=== PATIENT | male | born 1945 | race Caucasian/White ===

== ENCOUNTER → 2017-02-05 | Outpatient (CLI) | payer OTHER ==
[2017-02-05 16:35] LABS: HEMATOCRIT 43.6 % (42-52); MEAN CELL VOLUME 92.6 fL (80-100); MEAN CORPUSCULAR HEMOGLOBIN 30.6 pg (25-34); MEAN PLATELET VOLUME 11.3 fL (7.4-10.4); PLATELET COUNT 218 K/uL (130-400); RED BLOOD COUNT 4.71 M/uL (4.7-6.1); WHITE BLOOD COUNT 8.64 K/uL (4.8-10.8)
[2017-02-05 16:44] LABS: ALT/SGPT 31 U/L (12-78); BLOOD UREA NITROGEN 21 mg/dl (7-18); BUN/CREATININE RATIO 16.2 (10-20); CALCIUM 9.8 mg/dl (8.5-10.1); CARBON DIOXIDE 28 mmol/L (21-32); CHLORIDE 106 mmol/L (98-107); CHOLESTEROL 114 mg/dl (0-200); GLUCOSE 104 mg/dl (70-99); POTASSIUM 4.2 mmol/L (3.5-5.1); SODIUM 140 mmol/L (136-145)
[2017-02-05 17:00] LABS: ALB/GLOB RATIO 0.9 (0.9-2); ALKALINE PHOSPHATASE 68 U/L (45-117); AST/SGOT 15 U/L (15-37); CHOLESTEROL/HDL RATIO 3.1; HDL CHOLESTEROL 37 mg/dl; LDL CHOLESTEROL CALCULATED 18 mg/dl; TRIGLYCERIDES 296 mg/dl (0-150); VERY LOW DENSITY LIPOPROT CALC 59 mg/dl
[2017-02-06 06:48] LABS: ESTIMATED AVERAGE GLUCOSE 131 mg/dl; HA1C FLAG Normal (Normal)
== END | disposition home or self-care (01) ==
LOC: C.LABBC 12:02
PROVIDERS: ATTEND Internal Medicine
DX: Z00.00 Encounter for general adult medical examination without abnormal findings (principal); E11.9 Type 2 diabetes mellitus without complications; I10 Essential (primary) hypertension; E78.5 Hyperlipidemia, unspecified

== ENCOUNTER 2017-06-28 05:11 | Inpatient (IN) | payer OTHER ==
[2017-06-18 09:11] VITALS: Ht 172.7 cm; Wt 110.1 kg
--- NOTE | 2017-06-18 09:54 | PAT Medication Instructions ---
Service Date Jun 18, 2017. Current Home Medication List Amlodipine (Norvasc), 5 MG PO QAM Aspirin (Aspirin Ec), 81 MG PO HS Atorvastatin (Lipitor), 20 MG PO QPM Carvedilol (Coreg), 0.5 TAB PO BID Clopidogrel (Plavix), 75 MG PO QAM Diphenoxylate/Atropine (Lomotil), 2 TAB PO UD Escitalopram Oxalate (Lexapro), 20 MG PO QPM Isosorbide Mononitrate (Isosorbide Mononitrate), 60 MG PO QAM Losartan Potassium (Cozaar), 100 MG PO QAM Pioglitazone (Actos), 1 TAB PO HS Medication Instructions For Your Scheduled Surgery - Hold the following medications per surgeon and hospitalist physician: Clopidogrel (Plavix), 75 MG PO QAM - Hold the following medications the morning of surgery: Losartan Potassium (Cozaar), 100 MG PO QAM Diphenoxylate/Atropine (Lomotil), 2 TAB PO UD - Take the following medications the morning of surgery with a sip of water: Amlodipine (Norvasc), 5 MG PO QAM Carvedilol (Coreg), 0.5 TAB PO BID Isosorbide Mononitrate (Isosorbide Mononitrate), 60 MG PO QAM - Take the following medications as scheduled the night before surgery: Pioglitazone (Actos), 1 TAB PO HS Escitalopram Oxalate (Lexapro), 20 MG PO QPM Aspirin (Aspirin Ec), 81 MG PO HS (okay to continue per surgeon) Carvedilol (Coreg), 0.5 TAB PO BID Atorvastatin (Lipitor), 20 MG PO QPM Diphenoxylate/Atropine (Lomotil), 2 TAB PO UD If you have any questions please call us at [phone] or [phone] or [phone]
[2017-06-18 10:33] LABS: BASO % 0.4 %; BASO ABS # 0.03 K/uL (0-0.2); EOS % 2.8 %; EOS ABS # 0.22 K/uL (0-0.5); HEMOGLOBIN 12.3 g/dL (14.0-18.0); IG# 0.03 K/uL (0.00-0.02); LYMPH % 25.1 %; LYMPH ABS # 1.99 K/uL (1.2-3.4); MEAN CELL VOLUME 92.2 fL (80-100); MEAN CORPUSCULAR HEMOGLOBIN 29.9 pg (25-34); MEAN CORPUSCULAR HGB CONC 32.4 g/dl (32-36); MONO % 6.2 %; MONO ABS # 0.49 K/uL (0.11-0.59); NEUT % 65.1 %; NEUT ABS # 5.16 K/uL (1.4-6.5); PLATELET COUNT 207 K/uL (130-400); RED CELL DISTRIBUTION WIDTH CV 15.1 % (11.5-14.5); RED CELL DISTRIBUTION WIDTH SD 51.1 fL (36.4-46.3); WHITE BLOOD COUNT 7.92 K/uL (4.8-10.8)
--- NOTE | 2017-06-18 10:37 | DIAGNOSTIC IMAGING REPORT ---
CHEST 2 VIEWS ROUTINE HISTORY: Preop. COMPARISON: None. FINDINGS: The lungs are clear. No pleural effusions. No pneumothorax. The heart is borderline enlarged. IMPRESSION: Borderline enlargement of the cardiac silhouette. Otherwise, no acute process within the chest. Electronically signed by: Ramos Ochoa M.D. 06/18/2017 10:36 AM Dictated Date/Time: 06/18/2017 10:35 AM
[2017-06-18 10:42] LABS: INR 1.1 (0.9-1.1); PTT PATIENT 25.2 SECONDS (21.0-31.0)
[2017-06-18 11:53] LABS: CREATININE 1.5 mg/dl (0.60-1.40); POTASSIUM 3.5 mmol/L (3.5-5.1)
--- NOTE | 2017-06-25 12:02 | HISTORY & PHYSICAL EXAMINATION ---
DATE OF ADMISSION: 06/28/2017 He is being preoped for lumbar spine laminectomy L2-L3, L3-L4, L4-L5 lumbar. CHIEF COMPLAINT: Back and lower extremity difficulty, paresthesias, numbness and tingling and neurogenic claudication, inability to ambulate and pain. He had a very solid workup for spinal stenosis. He had a very impressive MRI with stenosis L2-L5. PAST MEDICAL HISTORY: Positive for sleep apnea, myocardial infarction, hypertension, high cholesterol, angina, diabetes, obesity. He does have a problem with kidney stones and enlarged prostate. PAST SURGICAL HISTORY: Includes appendectomy, parathyroid surgery. MEDICATIONS: Losartan, Plavix, carvedilol, atorvastatin, aspirin. ALLERGIES: CHRISTINE INHIBITORS AND SULFA MEDICATION. SOCIAL HISTORY: He is a nonsmoker, no alcohol, no illegal drug usage. REVIEW OF SYSTEMS: He denies any blurred vision, double vision, tinnitus, vertigo, loss of balance, change in mentation. Denies any ear, nose and throat complaints. He denies chest pain, palpitations, angina. Denies shortness of breath, wheezing. No nausea, vomiting. No urgency, frequency. No loss of bowel or bladder function. PHYSICAL EXAMINATION: GENERAL: He is 5'8, 248 pounds. He is alert, oriented. Mentation normal. HEAD, EYES, EARS, NOSE, AND THROAT: Normal. VITAL SIGNS: Blood pressure 130/80, pulse of 80, afebrile. CARDIAC: Normal S1, S2, no S3. LUNGS: Clear to auscultation. No rales, rhonchi or wheezing. ABDOMEN: Soft, nontender. MUSCULOSKELETAL: He has decreased range of motion, flexion, extension of the spine. Pain with percussion, slow with ambulation, weakness with dorsiflexion, loss of sensation, slight weakness of plantarflexion. Reflexes are blunted. IMAGES: Demonstrate severe stenosis of the spine. IMPRESSION: Spinal stenosis, lumbar. DISPOSITION: Includes a laminectomy 2-3, 3-4, 4-5 lumbar spine.
[2017-06-28] VITALS (9 sets, daily range): BP systolic 133–166; BP diastolic 71–90; PULSE 56–73; TEMP 36.4–37.8; O2SAT 91–97
[~2017-06-28] VITALS: Ht 172.7 cm; Wt 110.1 kg
[~2017-06-28 05:11] MED LIST: ACT30 PO; AMLO-110 PO; ASPI81TA28 PO; ATOR-22 PO; CARV25TA2 PO; CLOP1TAB15 PO; DIPH-416 PO; ESCI1TAB10 PO; ISM20 PO; LOSA1TAB38 PO
[2017-06-28] MEDS ORDERED: NSS 1000ML IV SCH (06:00)
[2017-06-28] MEDS ORDERED: CEFAZOLIN 2000MG IV PUSH 10 ML IV SCH (06:00)
[2017-06-28] MEDS ORDERED: LACTATED RINGER'S 1000ML 1,000 ML IV SCH (06:00)
[2017-06-28] MEDS ORDERED: LIDOCAINE HCL 2% 2 ML VIAL (20MG/ML) ONE (06:34)
[2017-06-28] MEDS ORDERED: DEXAMETHASONE SOD INJ 4 MG/ML VIAL ONE (06:34)
[2017-06-28] MEDS ORDERED: ONDANSETRON INJ 2 MG/ML 2 ML VIAL ONE (06:34)
[2017-06-28] MEDS ORDERED: PROPOFOL IV EMULSION 10 MG/ML 20 ML VIAL IV ONE (06:34)
[2017-06-28] MEDS ORDERED: ROCURONIUM BROMIDE 10 MG/ML 5 ML VIAL IV ONE ×2 (06:35→07:41)
[2017-06-28] MEDS ORDERED: FENTANYL CITRATE INJ 50 MCG/1 ML 2 ML VIAL ONE (06:35)
[2017-06-28] MEDS ORDERED: EpINEphrine INJ 1MG/ML AMP 1 MG/ML AMP ONE (07:03)
[2017-06-28] MEDS ORDERED: THROMBIN FOR SOLN 20000 UNIT KIT ONE (07:03)
[2017-06-28] MEDS ORDERED: GELATIN SPONGE SZ 100 ONE (07:03)
[2017-06-28] MEDS ORDERED: BUPIVACAINE 0.5 % 5 MG/1 ML MPF 30ML VIAL ONE (07:04)
[2017-06-28] MEDS ORDERED: BACITRACIN 50000 UNIT VIAL ONE (07:04)
[2017-06-28] MEDS ORDERED: VANCOMYCIN HCL 1000MG/20ML VIAL ONE ×2 (07:04→08:08)
--- NOTE | 2017-06-28 07:07 | History & Physical Bridge Note ---
H&P Re-Evaluation Bridge Note: I have examined the patient, reviewed the History & Physical and in the interval since the performance of the History & Physical I have noted the following changes of clinical significance: No changes noted
[2017-06-28] MEDS ORDERED: EpHEDrine SULFATE INJ 50 MG/ML AMP IV PRN (07:15)
[2017-06-28] MEDS ORDERED: ATROPINE SULFATE 0.1 MG/ML 5ML SYR IV PRN (07:15)
[2017-06-28] MEDS ORDERED: ONDANSETRON INJ 2 MG/ML 2 ML VIAL IV PRN ×2 (07:15→09:30)
[2017-06-28] MEDS ORDERED: MoRPHine SULFATE 10 MG/ML CARP/VIAL IV PRN (07:15)
[2017-06-28] MEDS ORDERED: HYDROmorphone INJ 2 MG/ML SYR/VIAL ONE (07:38)
[2017-06-28] MEDS ORDERED: NEOSTIGMINE METHYLSULFATE 5 MG/5 ML SYR ONE (08:54)
[2017-06-28] MEDS ORDERED: EpHEDrine SULFATE 50MG/5ML SYR ONE (08:54)
[2017-06-28] MEDS ORDERED: GLYCOPYRROLATE INJ 0.2 MG/ML VIAL ONE (08:54)
--- NOTE | 2017-06-28 09:13 | DIAGNOSTIC IMAGING REPORT ---
INTRAOPERATIVE LUMBAR SPINE SINGLE VIEW CLINICAL HISTORY: L2-L5 LAMINECTOMY COMPARISON STUDY: Outside MRI dated 04/20/2017 FINDINGS: 2 seconds of fluoroscopic time was utilized. A single fluoroscopic spot image is provided for interpretation. This reveals posterior skin retractors. There is a metallic probe at the level the posterior elements at the L1-2 level, as well as a metallic probe within the posterior elements at the S1-2 level. IMPRESSION: Intraoperative radiograph for localization purposes. Electronically signed by: Juan J Patel M.D. 06/28/2017 9:11 AM Dictated Date/Time: 06/28/2017 9:10 AM
--- NOTE | 2017-06-28 09:25 | [facility] Post Operative Brief Note ---
Immediate Operative Summary Operative Date Jun 28, 2017. Pre-Operative Diagnosis Spinal stenosis, lumbar L2-L5 Post-Operative Diagnosis Spinal stenosis, lumbar L2-L5 Procedure(s) Performed L2-L3, L3-L4, L4-L5 Laminectomies Sur[address] Uday Garcia Breaker Oiler Surgeon(s) Jose Breen PA-C Estimated Blood Loss 100 mL Findings stenosis Specimens No pathology specimens per surgeon Complication(s) None Disposition Recovery Room / PACU
[2017-06-28] MEDS ORDERED: METOCLOPRAMIDE HCL INJ 5 MG/ML 2 ML VIAL IV PRN (09:30)
[2017-06-28] MEDS ORDERED: LORAZEPAM 1 MG TAB PO PRN (09:30)
[2017-06-28] MEDS ORDERED: PROMETHAZINE HCL INJ 12.5 MG in SODIUM CHLORIDE 0.9% 50ML 50 ML IV PRN (09:30)
[2017-06-28] MEDS ORDERED: MAGNESIUM HYDROXIDE SUSP 30 ML UDC PO PRN (09:30)
[2017-06-28] MEDS ORDERED: HYDROmorphone INJ 1 MG/ML SYR IV PRN ×2 (09:30)
[2017-06-28] MEDS ORDERED: LORAZEPAM INJ 1 MG in SYRINGE 0 ML IV PRN (09:30)
[2017-06-28] MEDS ORDERED: OXYCODONE HCL IR 5 MG TAB (IMMEDIATE RELEASE) PO PRN (09:30)
[2017-06-28] MEDS ORDERED: DIPHENOXYLATE/ATROPINE 2.5/0.025MG TAB PO PRN (09:30)
[2017-06-28] MEDS ORDERED: ACETAMINOPHEN 325 MG TAB PO PRN (09:30)
--- NOTE | 2017-06-28 09:45 | OPERATIVE REPORT ---
DATE OF OPERATION: 06/28/2017 PREOPERATIVE DIAGNOSIS: Stenosis L2-L5 lumbar spine. POSTOPERATIVE DIAGNOSIS: Same. PROCEDURE: 1. Decompression laminectomy for level L2-5, lumbar spine foraminotomy, partial facetectomy. 2. Posterior lateral bilateral fusion with allograft and autograft from L2-5. SURGEON: Uday Garcia DO. ROLE PLAYER: Jose Breen PA-C. COMPLICATIONS: Zero. BLOOD LOSS: 100. ANESTHETIC: General. DESCRIPTION OF PROCEDURE: The patient was taken to the operating room and general intubated anesthetic provided to the patient, placed prone, scrubbed, prepped and draped sterile. We made a skin incision roughly from L1-S1 dissecting the soft tissue out over the facet joints and transverse processes. I put in a deep self-retaining retractor. We meticulously dissected free the spinal canal, lamina ligamentum flavum, extra osteophyte formation. I was pleased with the decompression. Each and every nerve root probed free of obstruction, visualized free of obstruction. We irrigated thoroughly, bone grafted out over the transverse processes of L2-5, closed over Hemovac drain, Gelfoam and vancomycin powder with #1 Vicryl suture, 2-0 in the subcuticular layer, 3-0 nylon on the skin. Sterile dressings applied. The patient returned to recovery room satisfactory and stable. Again, no complications. Sponge and needle count correct. I attest to the content of the Intraoperative Record and any orders documented therein. Any exception s are noted below.
[2017-06-28] MEDS: FENTANYL CITRATE INJ 50 MCG/1 ML 2 ML VIAL IV PRN ×4 (09:47→10:09)
[2017-06-28] MEDS ORDERED: IV FLUIDS COMPLETED PRN (10:00)
--- NOTE | 2017-06-28 10:45 | Anesthesiology Progress Note ---
Anesthesia Post Op Note Date & Time Jun 28, 2017 at 10:45 Vital Signs Pain Intensity: 5 Vital Signs Past 12 Hours Date Time Temp Pulse Resp B/P (MAP) Pulse Ox O2 Delivery O2 Flow Rate FiO2 06/28/17 10:27 58 12 06/28/17 10:27 59 12 95 06/28/17 10:26 158/81 06/28/17 10:24 156/83 06/28/17 10:22 58 12 06/28/17 10:22 58 12 97 06/28/17 10:21 159/84 06/28/17 10:17 58 12 98 06/28/17 10:17 58 12 06/28/17 10:16 150/84 06/28/17 10:13 36.4 58 18 150/84 (115) 97 Nasal Cannula 2 06/28/17 10:12 58 5 06/28/17 10:12 58 5 99 06/28/17 10:11 149/80 06/28/17 10:07 59 4 99 06/28/17 10:07 59 4 06/28/17 10:06 146/81 06/28/17 10:02 60 7 100 06/28/17 10:02 59 7 06/28/17 10:01 59 18 161/81 99 06/28/17 10:01 59 18 06/28/17 09:56 61 13 06/28/17 09:56 61 13 163/77 99 06/28/17 09:51 59 8 06/28/17 09:51 61 8 94 06/28/17 09:46 59 15 153/73 95 06/28/17 09:46 59 15 06/28/17 09:41 63 10 98 06/28/17 09:41 63 10 06/28/17 09:39 152/72 06/28/17 09:36 36.1 64 16 168/78 98 Oxymask 2 06/28/17 09:36 168/78 06/28/17 05:58 36.8 60 20 166/78 (107) 95 Room Air Notes Mental Status: alert / awake / arousable, participated in evaluation Pt Amnestic to Procedure: Yes Nausea / Vomiting: adequately controlled Pain: adequately controlled Airway Patency, RR, SpO2: stable & adequate BP & HR: stable & adequate Hydration State: stable & adequate Anesthetic Complications: no major complications apparent
[2017-06-28] MEDS: SODIUM CHLORIDE 0.9% 1000ML 1,000 ML IV SCH ×2 (11:37→23:51)
[2017-06-28] MEDS: ACETAMINOPHEN IV 1,000 MG in EMPTY BAG 0 ML IV SCH ×2 (12:46→20:46)
[2017-06-28] MEDS: OXYCODONE HCL IR 5 MG TAB (IMMEDIATE RELEASE) PO PRN (12:51)
[2017-06-28] MEDS: DEXAMETHASONE INJ 10 MG in SYRINGE 0 ML IV SCH ×2 (14:07→21:59)
--- NOTE | 2017-06-28 16:50 | Progress Note ---
Subjective Date of Service: Jun 28, 2017. Subjective Pt evaluation today including: conversation w/ patient 71 yo male with no complaints today. Patient had L2-L3, L3-L4, L4-L5 Laminectomies for spinal stenosis. Patient reports that his pain is controlled Review of Systems Constitutional: No fever, No chills Eyes: No worsening of vision ENT: No hearing loss Respiratory: No cough, No sputum Cardiac: No chest pain, No orthopnea Abdomen: No pain, No nausea Neurologic: No memory loss, No paralysis Psychiatric: No depression symptoms, No anhedonism Heme: No abnormal bleeding/bruising Endo: No fatigue Skin: No rash, No itch Current Inpatient Medications Medications (Trade) Dose Ordered Sig/Darlene Route Start Time Stop Time Status Last Admin Dose Admin Acetaminophen (Tylenol Tab) 650 mg Q6H PRN PO 06/28/17 09:30 07/28/17 09:29 Future Hold Hydromorphone HCl (Dilaudid Inj) 1 mg Q3H PRN IV 06/28/17 09:30 07/12/17 09:29 Hydromorphone HCl (Dilaudid Inj) 1.5 mg Q3H PRN IV 06/28/17 09:30 07/12/17 09:29 Promethazine HCl 12.5 mg/Sodium Chloride 50.5 ml @ 202 mls/hr Q6H PRN IV 06/28/17 09:30 07/28/17 09:29 Ondansetron HCl (Zofran Inj) 4 mg Q6H PRN IV 06/28/17 09:30 07/28/17 09:29 Metoclopramide HCl (Reglan Inj) 10 mg Q6H PRN IV 06/28/17 09:30 07/28/17 09:29 Lorazepam (Ativan Tab) 1 mg Q6H PRN PO 06/28/17 09:30 07/28/17 09:29 06/28/17 20:46 1 MG Lorazepam 1 mg/ Syringe 0.5 ml @ 1 mls/min Q6H PRN IV 06/28/17 09:30 07/28/17 09:29 Polyethylene (Miralax Powder Packet) 17 gm DAILY PO 06/29/17 09:00 07/29/17 08:59 Bisacodyl (Dulcolax Tab) 5 mg DAILY PRN PO 06/29/17 06:00 07/29/17 05:59 Bisacodyl (Dulcolax Supp) 10 mg DAILY PRN MD 06/29/17 06:00 07/29/17 05:59 Magnesium Hydroxide (Milk Of Magnesia Susp) 30 ml DAILY PRN PO 06/28/17 09:30 07/28/17 09:29 Diphenhydramine HCl (Benadryl Cap) 25 mg Q6H PRN PO 06/28/17 09:30 07/28/17 09:29 Cefazolin Sodium 2000 mg/Syringe 10 ml @ 2.5 mls/min Q8H IV 06/28/17 16:00 06/29/17 08:03 06/28/17 23:51 2.5 MLS/MIN Dexamethasone Sodium Phosphate 10 mg/Syringe 2.5 ml @ 1 mls/min Q8H IV 06/28/17 14:00 06/29/17 22:03 06/28/17 21:59 1 MLS/MIN Oxycodone HCl (Roxicodone Immediate Rel Tab) 5 mg Q4H PRN PO 06/28/17 09:30 07/12/17 09:29 Oxycodone HCl (Roxicodone Immediate Rel Tab) 10 mg Q4H PRN PO 06/28/17 09:30 07/12/17 09:29 06/28/17 12:51 10 MG Sodium Chloride 1,000 ml @ 80 mls/hr [id number] IV 06/28/17 11:30 07/28/17 11:29 06/28/17 23:51 80 MLS/HR Amlodipine Besylate (Norvasc Tab) 5 mg QAM PO 06/29/17 09:00 07/29/17 08:59 Aspirin (Ecotrin Tab) 81 mg HS PO 06/28/17 21:00 07/28/17 20:59 06/28/17 20:46 81 MG Atorvastatin Calcium (Lipitor Tab) 20 mg QPM PO 06/28/17 21:00 07/28/17 20:59 06/28/17 20:45 20 MG Carvedilol (Coreg Tab) 12.5 mg BID PO 06/28/17 21:00 07/28/17 20:59 06/28/17 20:46 12.5 MG Clopidogrel Bisulfate (plAVix TAB) 75 mg QAM PO 06/29/17 09:00 07/29/17 08:59 Diphenoxylate HCl/ Atropine (Lomotil Tab) 2 tab UD PRN PO 06/28/17 09:30 07/28/17 09:29 Escitalopram Oxalate (Lexapro Tab) 20 mg QPM PO 06/28/17 21:00 07/28/17 20:59 06/28/17 20:45 20 MG Isosorbide Mononitrate (Ismo Tab) 60 mg QAM PO 06/29/17 09:00 07/29/17 08:59 Losartan Potassium (coZAAR TAB) 100 mg QAM PO 06/29/17 09:00 07/29/17 08:59 Pioglitazone HCl (ACTos TAB) 30 mg HS PO 06/28/17 21:00 07/28/17 20:59 06/28/17 20:45 30 MG Acetaminophen 1000 mg/Empty Bag 100 ml @ 400 mls/hr Q8H IV 06/28/17 12:00 07/28/17 11:59 06/28/17 20:46 400 MLS/HR Miscellaneous (Iv Fluids Completed) 1 ea PRN PRN N/A 06/28/17 10:00 06/28/18 09:59 Menthol (Nice Chao) 1 chao PRN PRN PO 06/28/17 17:45 07/28/17 17:44 06/28/17 18:08 1 CHAO Miscellaneous Information (Consult Glycemic Management Pharmacy) 1 ea DAILY PRN N/A 06/28/17 22:48 07/28/17 22:47 Glucose (Glucose 40% Gel) 15-30 GRAMS 15 GRAMS... UD PRN PO 06/28/17 23:00 07/28/17 22:59 Glucose (Glucose Chew Tab) 4-8 Tablets 4 Tabl... UD PRN PO 06/28/17 23:00 07/28/17 22:59 Dextrose (Dextrose 50% 50ML Syringe) 25-50ML OF 50% DW IV FOR... UD PRN IV 06/28/17 23:00 07/28/17 22:59 Glucagon (Glucagon Inj) 1 mg UD PRN SQ 06/28/17 23:00 07/28/17 22:59 Insulin Aspart (novoLOG ASPART) SLIDING SCALE ACHS FL 06/29/17 08:00 07/29/17 07:59 Insulin Aspart (novoLOG ASPART) SLIDING SCALE 0200 SC 06/29/17 02:00 06/29/17 02:01 All Other Systems: Reviewed and Negative Objective Vital Signs Date Time Temp Pulse Resp B/P (MAP) Pulse Ox O2 Delivery O2 Flow Rate FiO2 06/28/17 15:11 36.9 59 16 135/75 (95) 96 Nasal Cannula 2.0 06/28/17 13:41 37.2 64 18 138/74 (95) 95 Nasal Cannula 2.0 06/28/17 12:38 59 133/71 (91) 97 Nasal Cannula 2.0 06/28/17 11:49 36.4 56 18 164/85 (111) 94 Nasal Cannula 2.0 06/28/17 11:25 Nasal Cannula 2.0 06/28/17 11:07 58 18 162/83 (109) 96 Nasal Cannula 2.0 06/28/17 10:40 Nasal Cannula 2.0 06/28/17 10:40 36.6 58 16 164/84 (110) 95 Nasal Cannula 2.0 06/28/17 10:40 95 Nasal Cannula 2.0 06/28/17 10:27 58 12 06/28/17 10:27 59 12 95 06/28/17 10:26 158/81 06/28/17 10:24 156/83 06/28/17 10:22 58 12 06/28/17 10:22 58 12 97 06/28/17 10:21 159/84 06/28/17 10:17 58 12 98 06/28/17 10:17 58 12 06/28/17 10:16 150/84 06/28/17 10:13 36.4 58 18 150/84 (115) 97 Nasal Cannula 2 06/28/17 10:12 58 5 06/28/17 10:12 58 5 99 06/28/17 10:11 149/80 06/28/17 10:07 59 4 99 06/28/17 10:07 59 4 06/28/17 10:06 146/81 06/28/17 10:02 60 7 100 06/28/17 10:02 59 7 06/28/17 10:01 59 18 161/81 99 06/28/17 10:01 59 18 1/8/18 09:56 61 13 06/28/17 09:56 61 13 163/77 99 06/28/17 09:51 59 8 06/28/17 09:51 61 8 94 06/28/17 09:46 59 15 153/73 95 06/28/17 09:46 59 15 06/28/17 09:41 63 10 98 06/28/17 09:41 63 10 06/28/17 09:39 152/72 06/28/17 09:36 36.1 64 16 168/78 98 Oxymask 2 06/28/17 09:36 168/78 06/28/17 05:58 36.8 60 20 166/78 (107) 95 Room Air Physical Exam General Appearance: WD/WN, no apparent distress Eyes: normal inspection ENT: normal ENT inspection Neck: supple, no adenopathy Respiratory/Chest: chest non-tender, lungs clear, normal breath sounds Cardiovascular: regular rate, rhythm, no edema Abdomen: normal bowel sounds Extremities: normal range of motion Skin: normal color Lymphatic: no adenopathy Laboratory Results Last 24 Hours Test 06/28/17 05:44 06/28/17 10:00 06/28/17 11:24 06/28/17 12:01 Bedside Glucose 90 mg/dl 117 mg/dl 121 mg/dl Hepatitis C Antibody Screen NEG Assessment and Plan 71 yo male admitted for multple l2-L3, L3-L4, L4-L5 Laminectomies for spinal stenosis. Patient was consulted for medical management. Diabetes Mellitus 2 Blood sugars today have been controlled. will monitor. will continue pioglitazone. Blood sugar has remained below 180. If it elevates will initiate insulin. Hypertension BP at goal. will continue Losartan, Amlodipine, Plavix, Imdur, Coreg, Lipitor, Norvasc CAD s/p MA - Continue Losartan 100 mg daily, ASA 81 mg daily, Atorvastatin 20 daily, Coreg 12.5 mg BID, Imdur 60 mg daily, Plavix 75 mg daily, Norvasc 5 mg daily
[2017-06-28] MEDS: CEFAZOLIN IV 2,000 MG in SYRINGE 0 ML IV SCH ×2 (16:59→23:51)
[2017-06-28] MEDS ORDERED: NURSING DECISION MEDICATION ORDER SCH (17:45)
[2017-06-28] MEDS ORDERED: COUGH DROP (SUGAR FREE) LOZ 24 LOZ/1 BOX PO PRN (17:45)
[2017-06-28] MEDS: PIOGLITAZONE TAB 15 MG TAB PO SCH (20:45)
[2017-06-28] MEDS: ESCITALOPRAM OXALATE 20 MG TAB PO SCH (20:45)
[2017-06-28] MEDS: ATORVASTATIN 20 MG TAB PO SCH (20:45)
[2017-06-28] MEDS: ASPIRIN 81 MG ECTAB PO SCH (20:46)
[2017-06-28] MEDS: CARVEDILOL 12.5 MG TAB PO SCH (20:46)
[2017-06-28] MEDS ORDERED: PHARMACY GLYCEMIC MGMT CONSULT PRN (22:48)
[2017-06-28] MEDS ORDERED: LANTUS PER UNIT CHARGE SQ STA (22:54)
[2017-06-28] MEDS ORDERED: INSULIN ASPART 100 UNITS/ML 3 ML PEN SC STA (22:54)
[2017-06-28] MEDS ORDERED: GLUCOSE 40% GEL 15 GM TUBE PO PRN (23:00)
[2017-06-28] MEDS ORDERED: GLUCOSE 10 TABS/TUBE PO PRN (23:00)
[2017-06-28] MEDS ORDERED: DEXTROSE 50% 50 ML SYR IV PRN (23:00)
[2017-06-28] MEDS ORDERED: GLUCAGON FOR INJ 1 MG VIAL SQ PRN (23:00)
[2017-06-29] VITALS (8 sets, daily range): BP systolic 120–165; BP diastolic 66–88; PULSE 58–85; TEMP 36.7–37.8; O2SAT 90–95
[2017-06-29] MEDS ORDERED: INSULIN ASPART 100 UNITS/ML 3 ML PEN SC SCH (02:00)
[2017-06-29] MEDS: ACETAMINOPHEN IV 1,000 MG in EMPTY BAG 0 ML IV SCH ×3 (03:30→21:58)
[2017-06-29] MEDS: DEXAMETHASONE INJ 10 MG in SYRINGE 0 ML IV SCH (05:36)
[2017-06-29] MEDS ORDERED: NURSING VERBAL MED ORDER ONE (05:45)
[2017-06-29] MEDS ORDERED: BISACODYL 5 MG TABEC PO PRN (06:00)
[2017-06-29] MEDS ORDERED: BISACODYL 10 MG SUPP PR PRN (06:00)
[2017-06-29] MEDS: OXYCODONE HCL IR 5 MG TAB (IMMEDIATE RELEASE) PO PRN (07:41)
[2017-06-29] MEDS: CEFAZOLIN IV 2,000 MG in SYRINGE 0 ML IV SCH (07:41)
--- NOTE | 2017-06-29 08:05 | ORTHOPEDICS PROGRESS NOTE ---
DATE: 06/29/2017 SUBJECTIVE: Improved, stable. Still weakness to the extremities. Alert, oriented, no chest pain, shortness of breath. OBJECTIVE: At bedside, 5/5 strength. Vital signs stable, pressure controlled. ASSESSMENT: Status post lumbar spine decompression surgery. Major surgery, multiple levels of his lumbar spine performed yesterday the 28 of June. DISPOSITION: We will get him up and ambulatory today with physical therapy. He has a brace for support. I put in an order for discharge planning. He would be a good candidate for home health and rehab versus in house rehab with [facility].
--- NOTE | 2017-06-29 08:09 | Anesthesiology Progress Note ---
Anesthesia Post Op Note Date & Time Jun 29, 2017 at 08:09 Vital Signs Pain Intensity: 6.0 Vital Signs Past 12 Hours Date Time Temp Pulse Resp B/P (MAP) Pulse Ox O2 Delivery O2 Flow Rate FiO2 06/29/17 07:45 Room Air CPAP 06/29/17 07:32 36.7 63 16 147/81 (103) 94 Room Air 06/29/17 03:30 36.8 58 18 158/82 (107) 95 BiPAP 06/28/17 23:50 Room Air CPAP 06/28/17 23:26 37.3 68 18 154/90 (111) 94 Room Air Notes Mental Status: alert / awake / arousable, participated in evaluation Pt Amnestic to Procedure: Yes Nausea / Vomiting: adequately controlled Pain: adequately controlled Airway Patency, RR, SpO2: stable & adequate BP & HR: stable & adequate Hydration State: stable & adequate Anesthetic Complications: no major complications apparent
[2017-06-29] MEDS: CLOPIDOGREL BISULFATE 75 MG TAB PO SCH (08:45)
[2017-06-29] MEDS: POLYETHYLENE (MIRALAX) 17 GM PACK PO SCH (08:45)
[2017-06-29] MEDS: LOSARTAN POTASSIUM 50 MG TAB PO SCH (08:46)
[2017-06-29] MEDS: CARVEDILOL 12.5 MG TAB PO SCH ×2 (08:46→21:57)
[2017-06-29] MEDS: AMLODIPINE BESYLATE 5 MG TAB PO SCH (08:46)
[2017-06-29] MEDS: ISOSORBIDE MONONITRATE 20 MG TAB PO SCH (08:47)
[2017-06-29 09:39] LABS: BASO % 0.1 %; BASO ABS # 0.01 K/uL (0-0.2); HEMATOCRIT 36.6 % (42-52); HEMOGLOBIN 12.3 g/dL (14.0-18.0); IG# 0.07 K/uL (0.00-0.02); LYMPH % 9.7 %; LYMPH ABS # 1.47 K/uL (1.2-3.4); MEAN CELL VOLUME 89.5 fL (80-100); MEAN CORPUSCULAR HEMOGLOBIN 30.1 pg (25-34); MEAN CORPUSCULAR HGB CONC 33.6 g/dl (32-36); MEAN PLATELET VOLUME 11.1 fL (7.4-10.4); MONO % 3.7 %; MONO ABS # 0.56 K/uL (0.11-0.59); NEUT ABS # 12.97 K/uL (1.4-6.5); PLATELET COUNT 205 K/uL (130-400); RED CELL DISTRIBUTION WIDTH CV 14.5 % (11.5-14.5); RED CELL DISTRIBUTION WIDTH SD 47.8 fL (36.4-46.3); WHITE BLOOD COUNT 15.08 K/uL (4.8-10.8)
[2017-06-29] MEDS: INSULIN ASPART 100 UNITS/ML 3 ML PEN SC SCH ×4 (09:43→21:00)
[2017-06-29 10:04] LABS: CALCIUM 9.1 mg/dl (8.5-10.1); CREATININE 1.36 mg/dl (0.60-1.40); POTASSIUM 3.3 mmol/L (3.5-5.1)
[2017-06-29 10:06] LABS: HEMOGLOBIN A1C 6.3 % (4.5-5.6)
[2017-06-29] MEDS ORDERED: POTASSIUM CHLORIDE 20 MEQ TABCR PO ONE (10:15)
--- NOTE | 2017-06-29 10:49 | Medical Consult ---
Consultation Date of Consultation: Jun 29, 2017. Attending Physician: Uday Garcia DO Reason for Consultation: Medical management History of Present Illness Patient is a 71 y/o male, with PMHx of CAD s/p FL, HLD, HTN, T2DM, anxiety, depression, HECTOR, and BPH, s/p decompression laminectomy for level L2-5, lumbar spine foraminotomy, partial facetectomy, posterior lateral bilateral fusion with allograft and autograft from L2-[address] Garcia on 06/28. Pain is currently well controlled. No BM/flatus postop. Eating and drinking OK. Patient denies any fever, chills, sweats, lightheadedness, dizziness, vision changes, CP, palpitations, edema, SOB, wheezing, cough, abdominal pain, nausea, vomiting, diarrhea, urinary symptoms, melena, numbness/tingling, weakness, muscle/joint pain, anxiety/depression, active bleeding, or new skin discoloration/changes. Past Medical/Surgical History PAST MEDICAL HISTORY: HECTOR CAD s/p myocardial infarction angina hypertension high cholesterol T2DM anxiety depression obesity h/o kidney stones BPH PAST SURGICAL HISTORY: appendectomy parathyroid surgery lumbar decompression surgery Family History HTN, DM, cardiac disease Social History Smoking Status: Former Smoker Alcohol Use: none Allergies Coded Allergies: CHRISTINE Inhibitors (Verified Allergy, Unknown, unknown, ? hives, 06/28/17) Metformin (Verified Allergy, Unknown, UNKNOWN REACTION, 06/28/17) Shellfish Allergy (Verified Allergy, Unknown, hives, 06/28/17) pt denies allergy to betadine...okay to use betadine on skin per patient Sulfa Antibiotics (Verified Allergy, Unknown, hives, 06/28/17) Home Medications Reported Home Medications Medications Dose Route/Sig Max Daily Dose Days Date Category Lomotil (Diphenoxylate HCl/Atropine) Tab 2 Tab PO UD 06/18/17 Reported Aspirin Ec (Aspirin) 81 Mg Tab 81 Mg PO HS 06/18/17 Reported Lipitor (Atorvastatin Calcium) 20 Mg Tab 20 Mg PO QPM 06/18/17 Reported Actos (Pioglitazone) 30 Mg Tab 1 Tab PO HS 90 06/18/17 Reported Coreg (Carvedilol) 25 Mg Tab 0.5 Tab PO BID 06/18/17 Reported Lexapro (Escitalopram Oxalate) 20 Mg Tab 20 Mg PO QPM 06/18/17 Reported Isosorbide Mononitrate 20 Mg Tab 60 Mg PO QAM 06/18/17 Reported Plavix (Clopidogrel Bisulfate) 75 Mg Tab 75 Mg PO QAM 06/18/17 Reported Cozaar (Losartan Potassium) 100 Mg Tab 100 Mg PO QAM 06/18/17 Reported Norvasc (Amlodipine Besylate) 5 Mg Tab 5 Mg PO QAM 06/18/17 Reported Current Inpatient Medications Current Inpatient Medications Medications (Trade) Dose Ordered Sig/Darlene Route Start Time Stop Time Status Last Admin Dose Admin Acetaminophen (Tylenol Tab) 650 mg Q6H PRN PO 06/28/17 09:30 07/28/17 09:29 Future Hold Hydromorphone HCl (Dilaudid Inj) 1 mg Q3H PRN IV 06/28/17 09:30 07/12/17 09:29 Hydromorphone HCl (Dilaudid Inj) 1.5 mg Q3H PRN IV 06/28/17 09:30 07/12/17 09:29 Promethazine HCl 12.5 mg/Sodium Chloride 50.5 ml @ 202 mls/hr Q6H PRN IV 06/28/17 09:30 07/28/17 09:29 Ondansetron HCl (Zofran Inj) 4 mg Q6H PRN IV 06/28/17 09:30 07/28/17 09:29 Metoclopramide HCl (Reglan Inj) 10 mg Q6H PRN IV 06/28/17 09:30 07/28/17 09:29 Lorazepam (Ativan Tab) 1 mg Q6H PRN PO 06/28/17 09:30 07/28/17 09:29 06/28/17 20:46 1 MG Lorazepam 1 mg/ Syringe 0.5 ml @ 1 mls/min Q6H PRN IV 06/28/17 09:30 07/28/17 09:29 Polyethylene (Miralax Powder Packet) 17 gm DAILY PO 06/29/17 09:00 07/29/17 08:59 Bisacodyl (Dulcolax Tab) 5 mg DAILY PRN PO 06/29/17 06:00 07/29/17 05:59 Bisacodyl (Dulcolax Supp) 10 mg DAILY PRN HI 1/9/18 06:00 07/29/17 05:59 Magnesium Hydroxide (Milk Of Magnesia Susp) 30 ml DAILY PRN PO 06/28/17 09:30 07/28/17 09:29 Diphenhydramine HCl (Benadryl Cap) 25 mg Q6H PRN PO 06/28/17 09:30 07/28/17 09:29 Dexamethasone Sodium Phosphate 10 mg/Syringe 2.5 ml @ 1 mls/min Q8H IV 06/28/17 14:00 06/29/17 22:03 06/29/17 05:36 1 MLS/MIN Oxycodone HCl (Roxicodone Immediate Rel Tab) 5 mg Q4H PRN PO 06/28/17 09:30 07/12/17 09:29 Oxycodone HCl (Roxicodone Immediate Rel Tab) 10 mg Q4H PRN PO 06/28/17 09:30 07/12/17 09:29 06/29/17 07:41 10 MG Amlodipine Besylate (Norvasc Tab) 5 mg QAM PO 06/29/17 09:00 07/29/17 08:59 Aspirin (Ecotrin Tab) 81 mg HS PO 06/28/17 21:00 07/28/17 20:59 06/28/17 20:46 81 MG Atorvastatin Calcium (Lipitor Tab) 20 mg QPM PO 06/28/17 21:00 07/28/17 20:59 06/28/17 20:45 20 MG Carvedilol (Coreg Tab) 12.5 mg BID PO 06/28/17 21:00 07/28/17 20:59 06/28/17 20:46 12.5 MG Clopidogrel Bisulfate (plAVix TAB) 75 mg QAM PO 06/29/17 09:00 07/29/17 08:59 Diphenoxylate HCl/ Atropine (Lomotil Tab) 2 tab UD PRN PO 06/28/17 09:30 07/28/17 09:29 Escitalopram Oxalate (Lexapro Tab) 20 mg QPM PO 06/28/17 21:00 07/28/17 20:59 06/28/17 20:45 20 MG Isosorbide Mononitrate (Ismo Tab) 60 mg QAM PO 06/29/17 09:00 07/29/17 08:59 Losartan Potassium (coZAAR TAB) 100 mg QAM PO 06/29/17 09:00 07/29/17 08:59 Pioglitazone HCl (ACTos TAB) 30 mg HS PO 06/28/17 21:00 07/28/17 20:59 06/28/17 20:45 30 MG Acetaminophen 1000 mg/Empty Bag 100 ml @ 400 mls/hr Q8H IV 06/28/17 12:00 07/28/17 11:59 06/29/17 03:30 400 MLS/HR Miscellaneous (Iv Fluids Completed) 1 ea PRN PRN N/A 06/28/17 10:00 06/28/18 09:59 Menthol (Nice Oksana) 1 oksana PRN PRN PO 06/28/17 17:45 07/28/17 17:44 06/28/17 18:08 1 OKSANA Miscellaneous Information (Consult Glycemic Management Pharmacy) 1 ea DAILY PRN N/A 06/28/17 22:48 07/28/17 22:47 Glucose (Glucose 40% Gel) 15-30 GRAMS 15 GRAMS... UD PRN PO 06/28/17 23:00 07/28/17 22:59 Glucose (Glucose Chew Tab) 4-8 Tablets 4 Tabl... UD PRN PO 06/28/17 23:00 07/28/17 22:59 Dextrose (Dextrose 50% 50ML Syringe) 25-50ML OF 50% DW IV FOR... UD PRN IV 06/28/17 23:00 07/28/17 22:59 Glucagon (Glucagon Inj) 1 mg UD PRN SQ 06/28/17 23:00 07/28/17 22:59 Insulin Aspart (novoLOG ASPART) SLIDING SCALE ACHS SC 06/29/17 08:00 07/29/17 07:59 Physical Exam Date Time Temp Pulse Resp B/P (MAP) Pulse Ox O2 Delivery O2 Flow Rate FiO2 06/29/17 07:45 Room Air CPAP 06/29/17 07:32 36.7 63 16 147/81 (103) 94 Room Air 06/29/17 03:30 36.8 58 18 158/82 (107) 95 BiPAP 06/28/17 23:50 Room Air CPAP 06/28/17 23:26 37.3 68 18 154/90 (111) 94 Room Air 06/28/17 20:01 37.8 73 18 161/76 (104) 91 Room Air 06/28/17 15:11 36.9 59 16 135/75 (95) 96 Nasal Cannula 2.0 06/28/17 13:41 37.2 64 18 138/74 (95) 95 Nasal Cannula 2.0 06/28/17 12:38 59 133/71 (91) 97 Nasal Cannula 2.0 06/28/17 11:49 36.4 56 18 164/85 (111) 94 Nasal Cannula 2.0 06/28/17 11:25 Nasal Cannula 2.0 06/28/17 11:07 58 18 162/83 (109) 96 Nasal Cannula 2.0 06/28/17 10:40 Nasal Cannula 2.0 06/28/17 10:40 36.6 58 16 164/84 (110) 95 Nasal Cannula 2.0 06/28/17 10:40 95 Nasal Cannula 2.0 06/28/17 10:27 58 12 06/28/17 10:27 59 12 95 06/28/17 10:26 158/81 06/28/17 10:24 156/83 06/28/17 10:22 58 12 06/28/17 10:22 58 12 97 06/28/17 10:21 159/84 06/28/17 10:17 58 12 98 06/28/17 10:17 58 12 06/28/17 10:16 150/84 06/28/17 10:13 36.4 58 18 150/84 (115) 97 Nasal Cannula 2 06/28/17 10:12 58 5 06/28/17 10:12 58 5 99 06/28/17 10:11 149/80 06/28/17 10:07 59 4 99 06/28/17 10:07 59 4 06/28/17 10:06 146/81 06/28/17 10:02 60 7 100 06/28/17 10:02 59 7 06/28/17 10:01 59 18 161/81 99 06/28/17 10:01 59 18 06/28/17 09:56 61 13 06/28/17 09:56 61 13 163/77 99 06/28/17 09:51 59 8 06/28/17 09:51 61 8 94 06/28/17 09:46 59 15 153/73 95 06/28/17 09:46 59 15 06/28/17 09:41 63 10 98 06/28/17 09:41 63 10 06/28/17 09:39 152/72 06/28/17 09:36 36.1 64 16 168/78 98 Oxymask 2 06/28/17 09:36 168/78 General Appearance: no apparent distress, + obese Head: normocephalic, atraumatic Eyes: normal inspection, PERRL ENT: hearing grossly normal Neck: supple Respiratory/Chest: lungs clear, no respiratory distress, no accessory muscle use Cardiovascular: regular rate, rhythm Abdomen/GI: normal bowel sounds, non tender, soft Genitourinary - Male: + pertinent finding (+carrion- draining clear/yellow urine ) Back: + pertinent finding (hemovac w/ bloody output ) Extremities/Musculoskelatal: no calf tenderness, no pedal edema Neurologic/Psych: no motor/sensory deficits, alert, normal mood/affect, oriented x 3 Skin: normal color, warm/dry, no rash Laboratory Results Last 24 Hours Test 06/28/17 10:00 06/28/17 11:24 06/28/17 12:01 06/28/17 16:56 Bedside Glucose 117 mg/dl 121 mg/dl 141 mg/dl Hepatitis C Antibody Screen NEG Test 06/28/17 20:39 06/29/17 01:50 06/29/17 07:51 06/29/17 08:41 Bedside Glucose 199 mg/dl 138 mg/dl 136 mg/dl Test 06/29/17 08:42 Assessment & Plan Patient is a 71 y/o male, with PMHx of CAD s/p FL, HLD, HTN, T2DM, anxiety, depression, HECTOR, and BPH, s/p decompression laminectomy for level L2-5, lumbar spine foraminotomy, partial facetectomy, posterior lateral bilateral fusion with allograft and autograft from L2-[address] Garcia on 06/28. s/p lumbar decompression surgery by Dr. Garcia on 06/28: - Surgical management, pain management, PT/OT, and DVT prophylaxis as per primary team - Bowel regimen ordered - Encouraged incentive spirometer - Follow postop CBC and PRP -- H&H- STABLE -- Leukocytosis, likely secondary to postop response/IV steroids- follow CBC Hypokalemia at 3.3: Replaced w/ 20 mEq KCL supplement, follow PRP and replace PRN CAD s/p FL w/ 6 stents, angina, HLD, HTN- follows w/ Dr. Deluca: - Continue Losartan 100 mg daily, ASA 81 mg daily, Lipitor 20 daily, Coreg 12.5 mg BID, Imdur 60 mg daily, Plavix 75 mg daily, Norvasc 5 mg daily - Mildly hypertensive, likely secondary to pain- will continue to monitor T2DM w/ hyperglycemia, likely secondary to IV steroids- hgbA1c 6.3%: - Continue Actos 30 HS - BSG ACHS and ISS - Pharmacy consulted for glycemic management Anxiety, depression: Lexapro 30 mg daily HECTOR, obesity: Continue CPAP HS DVT prophylaxis: As per surgical team- ASA 81 mg daily Code Status: LEVEL I, FULL Dispo: As per primary team- planning for rehab at discharge Reviewed: Pt Seen/Exam by Me History Physician Food Service Kitchen Supervisor Supervision Note: I interviewed and examined the patient. Discussed with AYESHA Waldrop and agree with findings and plan as documented in the note. Any exceptions or clarifications are listed here: Pt feeling well. No CP or SOB. Passing flatus, had Carrion removed recently and hasn't voided yet. Pain in lower back with movement. Vitals reviewed NAD, sitting up in bed, AAOx3 RRR no mgr CTAB no wcr Abd +BS Ext no edema, no calf tenderness Back-dressing in place 71 yo male with h/o CAD/FL, HTN, HL,HECTOR on CPAP, DMII, CKD stage III, BPH, kidney stones, here POD#1 s/p lumbar laminectomy -doing well post-op, no signs of ACS -continue current meds -planning for dc to [facility] tomorrow Documented By: Jazmin Brady
--- NOTE | 2017-06-29 12:23 | Pharmacy Progress Note ---
Glycemic Control Intl Consult Date of Service Jun 29, 2017. Scope Glycemic Pharmacist consulted by Dr Ferreira on 06/28/17 for glycemic control and to write orders per [facility] inpatient glycemic control protocol Objective Weight (Kilograms): 110.100 Accuchecks BSG (last 24hrs): Test 06/28/17 16:56 06/28/17 20:39 06/29/17 01:50 06/29/17 07:51 Bedside Glucose 141 mg/dl (70-99) 199 mg/dl (70-99) 138 mg/dl (70-99) 136 mg/dl (70-99) Test 06/29/17 08:59 06/29/17 11:51 Random Glucose 147 mg/dl (70-99) Bedside Glucose 154 mg/dl (70-99) Laboratory Data (last 24hrs) Test 06/29/17 08:59 Anion Gap 8.0 mmol/L BUN/Creatinine Ratio 9.5 Blood Urea Nitrogen 13 mg/dl Creatinine 1.36 mg/dl Hemoglobin A1c 6.3 % Potassium Level 3.3 mmol/L Sodium Level 137 mmol/L White Blood Count 15.08 K/uL Red Blood Count 4.09 M/uL Hemoglobin 12.3 g/dL Hematocrit 36.6 % Mean Corpuscular Volume 89.5 fL Mean Corpuscular Hemoglobin 30.1 pg Mean Corpuscular Hemoglobin Concent 33.6 g/dl Platelet Count 205 K/uL Mean Platelet Volume 11.1 fL Neutrophils (%) (Auto) 86.0 % Lymphocytes (%) (Auto) 9.7 % Monocytes (%) (Auto) 3.7 % Eosinophils (%) (Auto) 0.0 % Basophils (%) (Auto) 0.1 % Neutrophils # (Auto) 12.97 K/uL Lymphocytes # (Auto) 1.47 K/uL Monocytes # (Auto) 0.56 K/uL Eosinophils # (Auto) 0.00 K/uL Basophils # (Auto) 0.01 K/uL HbA1c Test 06/29/17 08:59 Hemoglobin A1c 6.3 % (4.5-5.6) H Recent Pertinent Medications Outpatient Anti-diabetic Regimen: * Actos 30mg PO HS The patient is currently receiving: * Basal insulin: Lantus 20 units SQ x 1 dose last evening * Correctional Insulin: Novolog Correction per scale ACHS Goal Range: Low 110 mg/dL - High 140 mg/dL Correction Factor: 20 mg/dL/unit * Prandial insulin: Per carb ratio of 1 unit per 7 grams CHO consumed * Oral Agents: Actos 30mg PO HS Risk Factors for Insulin Resistance: * Steroids * Recent Surgery * Diet Assessment & Plan ASSESSMENT: * 71yo T2DM male with well controlled diabetes as an outpatient per recent A1c * Pt is maintained on oral antidiabetic agents as an outpatient * Oral agents are not recommended for inpatient use d/t drug interactions, changing PO intake, and difficulty titrating for acute hyper/hypoglycemia. ADA recommends re-initiating outpatient oral agents 1-2 days prior to discharge if/ when appropriate if they were held on admission. * OK to continue Actos for inpatient use since it has a low risk of hypoglycemia * Actos will not be enough to cover steroid induced hyperglycemia. Will utilize SQ basal bolus insulin regimen which is the recommended regimen for inpatient glycemic control. * Will initiate weight based insulin dosing for insulin lara patient and titrate based on BSG trends. * Discussed steroid dosing with Dr Garcia - pt is ordered 5 doses but typically they are only ordered 3 doses. If pt is to receive additional dexamethasone for a total of 5 doses would repeat long acting basal insulin dose. Dr Garcia only wanted 3 doses of dexamethasone, therefore, will start to taper insulin regimen in accordance with discontinued steroids. PLAN FOR INPATIENT GLYCEMIC CONTROL: * Outpatient oral diabetes medications * Continue Actos 30mg PO HS * Basal insulin * D/C - no longer needed now that dxm d/c * Bolus insulin: loosen parameters since steroids d/c * NovoLog per scale ACHS or Q6hrs while NPO * Goal Range: Low 110 mg/dL - High 140 mg/dL * Correction Factor: 30 mg/dL/unit * Nutritional / Prandial insulin per carb ratio of 1 unit per 13 grams CHO consumed * Please note that the plan above was derived based on current level of insulin resistance and hospital stress. These recommendations are appropriate for inpatient admission only. Plan of care upon discharge will need to be reassessed to avoid potential outpatient hypo/hyperglycemia. Thank you.
[2017-06-29] MEDS: PIOGLITAZONE TAB 15 MG TAB PO SCH (21:57)
[2017-06-29] MEDS: ATORVASTATIN 20 MG TAB PO SCH (21:57)
[2017-06-29] MEDS: ESCITALOPRAM OXALATE 20 MG TAB PO SCH (21:57)
[2017-06-29] MEDS: ASPIRIN 81 MG ECTAB PO SCH (21:58)
[2017-06-30] MEDS: ACETAMINOPHEN IV 1,000 MG in EMPTY BAG 0 ML IV SCH ×3 (03:42→21:13)
[2017-06-30 06:50] VITALS: BP 135/67; PULSE 54; TEMP 36.6; O2SAT 96
[2017-06-30 07:12] LABS: HEMATOCRIT 32.4 % (42-52); HEMOGLOBIN 10.8 g/dL (14.0-18.0); MEAN CELL VOLUME 89.5 fL (80-100); MEAN CORPUSCULAR HEMOGLOBIN 29.8 pg (25-34); MEAN CORPUSCULAR HGB CONC 33.3 g/dl (32-36); MEAN PLATELET VOLUME 10.9 fL (7.4-10.4); PLATELET COUNT 191 K/uL (130-400); RED CELL DISTRIBUTION WIDTH SD 49.1 fL (36.4-46.3); WHITE BLOOD COUNT 14.04 K/uL (4.8-10.8)
[2017-06-30 07:43] LABS: CALCIUM 8.6 mg/dl (8.5-10.1); CREATININE 1.06 mg/dl (0.60-1.40); POTASSIUM 3.1 mmol/L (3.5-5.1)
--- NOTE | 2017-06-30 08:09 | ORTHOPEDICS PROGRESS NOTE ---
DATE: 06/30/2017 SUBJECTIVE: He is alert, slightly disoriented. He could answer questions, but somewhat inappropriately. He does not have pain. OBJECTIVE: Vital signs are stable, 36.6 temperature. Laboratory work pending. Wound clean and dry. Moves all extremities. ASSESSMENT: Status post lumbar spine surgery, fairly rigorous surgery done 2 days ago with minimal blood actually. Thus seen little confused here today more metabolic. DISPOSITION: Order some baseline laboratory data include CBC, sed, electrolytes, magnesium level, pulse oximetry as well. Medicine will see him later today. He certainly cannot go home. We will change his dressing and pull his drain.
[2017-06-30] MEDS ORDERED: POTASSIUM CHLORIDE 20 MEQ TABCR PO ONE (09:00)
[2017-06-30] MEDS: POLYETHYLENE (MIRALAX) 17 GM PACK PO SCH (09:00)
[2017-06-30] MEDS: INSULIN ASPART 100 UNITS/ML 3 ML PEN SC SCH ×4 (09:09→21:00)
[2017-06-30] MEDS: CARVEDILOL 12.5 MG TAB PO SCH ×2 (09:13→21:14)
[2017-06-30] MEDS: ISOSORBIDE MONONITRATE 20 MG TAB PO SCH (09:14)
[2017-06-30] MEDS: AMLODIPINE BESYLATE 5 MG TAB PO SCH (09:15)
[2017-06-30] MEDS: LOSARTAN POTASSIUM 50 MG TAB PO SCH (09:15)
[2017-06-30] MEDS: CLOPIDOGREL BISULFATE 75 MG TAB PO SCH (09:15)
[2017-06-30] MEDS ORDERED: MAGNESIUM SULFATE 1GM / D5W 1 GM in PREMIXED IN D5W 100 ML IV STA (10:20)
--- NOTE | 2017-06-30 11:06 | Hospitalist Progress Note ---
Hospitalist Progress Note Date of Service Jun 30, 2017. (Yolanda Waldrop ., PA-C) Subjective Pt evaluation today including: conversation w/ patient, physical exam, lab review, review of inpatient medication list Patient sitting at edge of bed. Ambulated from bathroom to bed w/ two assist. Alert/oriented. Ask when he can go home- stated that is up to Dr. Garcia, then proceed to state there is no reason for medical to see him and did not want to talk. States he did not want to see the medical team because, "we're just here to collect medicare." ROS could not be obtained due to refusal. Complete physical exam could not be completed due to refusal. Spoke w/ RN- disoriented this AM, now alert/oriented as morning progressed. Compliant w/ CPAP overnight. Had a fall yesterday- denied head injury and stated R ankle gave out. Refusing ankle x-ray. Spoke w/ OT- knee gives out periodically. Full weight-bearing to R ankle, no complaints. Unsafe to return home. Patient lives at home alone, eats out for every meal. (Yolanda Waldrop ., PA-C) Medications Current Inpatient Medications Medications (Trade) Dose Ordered Sig/Darlene Route Start Time Stop Time Status Last Admin Dose Admin Acetaminophen (Tylenol Tab) 650 mg Q6H PRN PO 06/28/17 09:30 07/28/17 09:29 Future Hold Hydromorphone HCl (Dilaudid Inj) 1 mg Q3H PRN IV 06/28/17 09:30 07/12/17 09:29 Hydromorphone HCl (Dilaudid Inj) 1.5 mg Q3H PRN IV 06/28/17 09:30 07/12/17 09:29 Promethazine HCl 12.5 mg/Sodium Chloride 50.5 ml @ 202 mls/hr Q6H PRN IV 06/28/17 09:30 07/28/17 09:29 Ondansetron HCl (Zofran Inj) 4 mg Q6H PRN IV 06/28/17 09:30 07/28/17 09:29 Metoclopramide HCl (Reglan Inj) 10 mg Q6H PRN IV 06/28/17 09:30 07/28/17 09:29 Lorazepam (Ativan Tab) 1 mg Q6H PRN PO 06/28/17 09:30 07/28/17 09:29 06/28/17 20:46 1 MG Lorazepam 1 mg/ Syringe 0.5 ml @ 1 mls/min Q6H PRN IV 06/28/17 09:30 07/28/17 09:29 Polyethylene (Miralax Powder Packet) 17 gm DAILY PO 06/29/17 09:00 07/29/17 08:59 Bisacodyl (Dulcolax Tab) 5 mg DAILY PRN PO 06/29/17 06:00 07/29/17 05:59 Bisacodyl (Dulcolax Supp) 10 mg DAILY PRN NV 06/29/17 06:00 07/29/17 05:59 Magnesium Hydroxide (Milk Of Magnesia Susp) 30 ml DAILY PRN PO 06/28/17 09:30 07/28/17 09:29 Diphenhydramine HCl (Benadryl Cap) 25 mg Q6H PRN PO 06/28/17 09:30 07/28/17 09:29 Oxycodone HCl (Roxicodone Immediate Rel Tab) 5 mg Q4H PRN PO 06/28/17 09:30 07/12/17 09:29 Oxycodone HCl (Roxicodone Immediate Rel Tab) 10 mg Q4H PRN PO 06/28/17 09:30 07/12/17 09:29 06/29/17 07:41 10 MG Amlodipine Besylate (Norvasc Tab) 5 mg QAM PO 06/29/17 09:00 07/29/17 08:59 06/30/17 09:15 5 MG Aspirin (Ecotrin Tab) 81 mg HS PO 06/28/17 21:00 07/28/17 20:59 06/29/17 21:58 81 MG Atorvastatin Calcium (Lipitor Tab) 20 mg QPM PO 06/28/17 21:00 07/28/17 20:59 06/29/17 21:57 20 MG Carvedilol (Coreg Tab) 12.5 mg BID PO 06/28/17 21:00 07/28/17 20:59 06/30/17 09:13 12.5 MG Clopidogrel Bisulfate (plAVix TAB) 75 mg QAM PO 06/29/17 09:00 07/29/17 08:59 06/30/17 09:15 75 MG Diphenoxylate HCl/ Atropine (Lomotil Tab) 2 tab UD PRN PO 06/28/17 09:30 07/28/17 09:29 Escitalopram Oxalate (Lexapro Tab) 20 mg QPM PO 06/28/17 21:00 07/28/17 20:59 06/29/17 21:57 20 MG Isosorbide Mononitrate (Ismo Tab) 60 mg QAM PO 06/29/17 09:00 07/29/17 08:59 06/30/17 09:14 60 MG Losartan Potassium (coZAAR TAB) 100 mg QAM PO 06/29/17 09:00 07/29/17 08:59 06/30/17 09:15 100 MG Pioglitazone HCl (ACTos TAB) 30 mg HS PO 06/28/17 21:00 07/28/17 20:59 06/29/17 21:57 30 MG Acetaminophen 1000 mg/Empty Bag 100 ml @ 400 mls/hr Q8H IV 06/28/17 12:00 07/28/17 11:59 06/30/17 03:42 400 MLS/HR Miscellaneous (Iv Fluids Completed) 1 ea PRN PRN N/A 06/28/17 10:00 06/28/18 09:59 Menthol (Nice Oksana) 1 oksana PRN PRN PO 06/28/17 17:45 07/28/17 17:44 06/28/17 18:08 1 OKSANA Miscellaneous Information (Consult Glycemic Management Pharmacy) 1 ea DAILY PRN N/A 06/28/17 22:48 07/28/17 22:47 Glucose (Glucose 40% Gel) 15-30 GRAMS 15 GRAMS... UD PRN PO 06/28/17 23:00 07/28/17 22:59 Glucose (Glucose Chew Tab) 4-8 Tablets 4 Tabl... UD PRN PO 06/28/17 23:00 07/28/17 22:59 Dextrose (Dextrose 50% 50ML Syringe) 25-50ML OF 50% DW IV FOR... UD PRN IV 06/28/17 23:00 07/28/17 22:59 Glucagon (Glucagon Inj) 1 mg UD PRN SQ 06/28/17 23:00 2/7/18 22:59 Insulin Aspart (novoLOG ASPART) SLIDING SCALE ACHS SC 06/30/17 08:00 07/30/17 07:59 Magnesium Sulfate 1 gm/Prmx 100 ml @ 100 mls/hr NOW STAT IV 06/30/17 10:20 06/30/17 11:19 (Yolanda Waldrop PA-C) Objective Vital Signs Date Time Temp Pulse Resp B/P (MAP) Pulse Ox O2 Delivery O2 Flow Rate FiO2 06/30/17 07:50 Room Air CPAP 06/30/17 06:50 36.6 54 18 135/67 (89) 96 CPAP 06/29/17 23:15 36.7 85 18 165/79 (107) 93 CPAP 06/29/17 23:10 Room Air 06/29/17 21:55 69 138/77 (97) 06/29/17 15:46 37.8 68 18 138/88 (105) 90 Room Air 06/29/17 15:35 Room Air 06/29/17 15:19 37.0 63 16 122/73 (89) 94 Room Air 06/29/17 11:08 94 (Yolanda Waldrop, AYESHA-C) Physical Exam General Appearance: no apparent distress, + obese Eyes: normal inspection, PERRL ENT: hearing grossly normal Neck: supple Respiratory/Chest: + pertinent finding (could not complete due to refusal ) Cardiovascular: + pertinent finding (could not complete due to refusal ) Abdomen: + pertinent finding (could not complete due to refusal ) Extremities: + pertinent finding (could not complete due to refusal ) Neurologic/Psychiatric: alert, oriented x 3, + pertinent finding (rude/ agitated ) Skin: normal color (Yolanda Waldrop, AYESHA-C) Laboratory Results Last 24 Hours Test 06/29/17 11:51 06/29/17 18:42 06/29/17 21:53 06/30/17 06:21 Bedside Glucose 154 mg/dl 165 mg/dl 131 mg/dl White Blood Count 14.04 K/uL Red Blood Count 3.62 M/uL Hemoglobin 10.8 g/dL Hematocrit 32.4 % Mean Corpuscular Volume 89.5 fL Mean Corpuscular Hemoglobin 29.8 pg Mean Corpuscular Hemoglobin Concent 33.3 g/dl RDW Standard Deviation 49.1 fL RDW Coefficient of Variation 15.0 % Platelet Count 191 K/uL Mean Platelet Volume 10.9 fL Sodium Level 138 mmol/L Potassium Level 3.1 mmol/L Chloride Level 102 mmol/L Carbon Dioxide Level 29 mmol/L Anion Gap 7.0 mmol/L Blood Urea Nitrogen 19 mg/dl Creatinine 1.06 mg/dl Est Creatinine Clear Calc Drug Dose 78.0 ml/min Estimated GFR () 82.0 Estimated GFR (Non- 70.8 BUN/Creatinine Ratio 18.0 Random Glucose 109 mg/dl Calcium Level 8.6 mg/dl Magnesium Level 1.5 mg/dl Test 06/30/17 07:53 Bedside Glucose 109 mg/dl (Yolanda Waldrop, PABennie) Assessment and Plan Patient is a 71 y/o male, with PMHx of CAD s/p MD, HLD, HTN, T2DM, anxiety, depression, HECTOR, and BPH, s/p decompression laminectomy for level L2-5, lumbar spine foraminotomy, partial facetectomy, posterior lateral bilateral fusion with allograft and autograft from L2-[address] Garcia on 06/28. s/p lumbar decompression surgery by Dr. Garcia on 06/28: - Surgical management, pain management, PT/OT, and DVT prophylaxis as per primary team - Bowel regimen ordered - Encouraged incentive spirometer - Follow postop CBC and PRP -- H&H- STABLE -- Leukocytosis, likely secondary to postop response/IV steroids- follow CBC Hypokalemia at 3.1: - Replaced w/ PO 40 mEq KCL supplement x1 today - Follow PRP and replace PRN Hypomagnesemia at 1.5: Replace w/ 1 gm Mag IV x1, follow mag level and replace PRN CAD s/p MD w/ 6 stents, angina, HLD, HTN- follows w/ Dr. Deluca: - Continue Losartan 100 mg daily, ASA 81 mg daily, Lipitor 20 daily, Coreg 12.5 mg BID, Imdur 60 mg daily, Plavix 75 mg daily, Norvasc 5 mg daily - Mildly hypertensive, likely secondary to pain- will continue to monitor- IMPROVED T2DM w/ hyperglycemia, likely secondary to IV steroids- hgbA1c 6.3%: - Continue Actos 30 HS - BSG ACHS and ISS - Pharmacy consulted for glycemic management Anxiety, depression: Lexapro 30 mg daily HECTOR, obesity: Continue CPAP HS DVT prophylaxis: As per surgical team- ASA 81 mg daily Code Status: LEVEL I, FULL Dispo: As per primary team- planning for rehab at discharge (Yolanda Waldrop, PA-C) Reviewed: Pt Seen/Exam by Me (Jazmin Brady MD) History Physician Pbx Manager Supervision Note: I interviewed and examined the patient. Discussed with AYESHA Waldrop and agree with findings and plan as documented in the note. Any exceptions or clarifications are listed here: Had a fall later in the day yesterday while turning to sit on toilet, twisted ankle and then knee gave out. Having some pain in lateral left ankle but able to ambulate and bear weight since then, refused xray. Discharge put off today by attending due to concern about his mental status and the fall with ankle injury. Pt less agitated when I saw him compared to earlier reports today. Denies CP or SOB, no abd pain, passing flatus but no BM yet, is making urine. Reports not eating much here as he doesn't like the food. Not drinking much because he doesn't want to have to get up much to go to the bathroom. Vitals reviewed NAD, sitting up in bed, AAOx3 RRR no mgr CTAB no wcr Abd +BS Ext no edema, no calf tenderness, Right ankle with FROM, +minimal tenderness to palpation over anterior lateral ankle, not over lat malleolus, no effusion Back-dressing in place 71 yo male with h/o CAD/MD, HTN, HL,HECTOR on CPAP, DMII, CKD stage III, BPH, kidney stones, here POD#2 s/p lumbar laminectomy -doing well post-op, no signs of ACS -mild ankle sprain, management as per Ortho -continue current meds -BPs improved -glucose controlled -planning for dc to [facility] tomorrow-stable from medical perspective Documented By: Jazmin Brady (Jazmin Brady MD)
[2017-06-30] MEDS ORDERED: ISOS60TA25 PO (12:56)
[2017-06-30 14:52] VITALS: BP 133/73; PULSE 62; TEMP 36.8; O2SAT 95
[2017-06-30 21:12] VITALS: BP 140/71; PULSE 63
[2017-06-30] MEDS: ESCITALOPRAM OXALATE 20 MG TAB PO SCH (21:14)
[2017-06-30] MEDS: ATORVASTATIN 20 MG TAB PO SCH (21:14)
[2017-06-30] MEDS: ASPIRIN 81 MG ECTAB PO SCH (21:14)
[2017-06-30] MEDS: PIOGLITAZONE TAB 15 MG TAB PO SCH (21:14)
[2017-06-30 23:38] VITALS: BP 112/58; PULSE 54; TEMP 36.7; O2SAT 96
[2017-07-01] MEDS: ACETAMINOPHEN IV 1,000 MG in EMPTY BAG 0 ML IV SCH ×2 (05:06→12:42)
[2017-07-01 06:39] LABS: HEMATOCRIT 31.3 % (42-52); HEMOGLOBIN 10.3 g/dL (14.0-18.0); MEAN CELL VOLUME 89.9 fL (80-100); MEAN CORPUSCULAR HEMOGLOBIN 29.6 pg (25-34); MEAN CORPUSCULAR HGB CONC 32.9 g/dl (32-36); MEAN PLATELET VOLUME 10.8 fL (7.4-10.4); PLATELET COUNT 180 K/uL (130-400); RED CELL DISTRIBUTION WIDTH SD 49.6 fL (36.4-46.3)
[2017-07-01 06:59] VITALS: BP 127/71; PULSE 53; TEMP 36.9; O2SAT 96
[2017-07-01 07:16] LABS: CALCIUM 8.2 mg/dl (8.5-10.1); CREATININE 0.98 mg/dl (0.60-1.40); POTASSIUM 2.9 mmol/L (3.5-5.1)
--- NOTE | 2017-07-01 07:27 | Discharge Instructions ---
Discharge Instructions Date of Service Jul 01, 2017. Admission Reason for Admission: Lumbar Spinal Stenosis Discharge Discharge Diagnosis / Problem: same Discharge Goals Goal(s): Improve function Activity Recommendations Activity Limitations: as noted below Lifting Limitations: gradually increase as tolerated Shower/Bathe: keep incision dry . Instructions / Follow-Up Instructions / Follow-Up MEDICATIONS: Please take your prescriptions as instructed at your pre-op appointment. SPECIAL CARE: The following information is intended to answer some of the common questions and concerns regarding your surgery. Each patient is an individual and receives individual counselling throughout the course of treatment, from diagnosis to surgery all the way through recovery. What follows is not an exhaustive list, but should be a useful guide to some of the common questions and concerns patients have regarding their surgeries. These are not provided to keep you from calling us; rather, they give you something accurate and concrete to reference as you recover from your procedure. If you need us, we are available to you. As always, if you are not sure about something, call us at [phone]. MEDICAL EMERGENCIES: For these conditions, call 911 or go to your local hospital-based Emergency Department - not [facility] or equivalent. * Paralysis * Severe chest pain or difficulty breathing * Swelling or redness of either leg Spine procedures can be rather complex and though complications are rare, they do occur. In such cases, effective advice regarding emergency situations cannot always be addressed over the telephone. You may be referred to the emergency department for more effective management of your problem. Activity Limitations: It is important to give your body time to heal, so please limit your activities : * In general, don't do anything that moves your spine too much. You should avoid contact sports, twisting or heavy lifting while you recover. * 5-10 pounds is all you should attempt to lift. * You should not plan on driving for approximately 3 weeks and you should avoid traveling more than 30-45 minutes at a time. Longer trips should be broken down with walking breaks spaced appropriately. * Physical therapy is not usually required. * Walking and good posture practices will help you recover and regain your function. * Avoid straining or sudden changes in position. * In general, the goal is to take it easy and recover. Don't cause any new problems. Just relax. Showers: * Do not take a bath, use a Jacuzzi or hot tub or otherwise submerge your incision. * It is usually safe to take a shower 4-5 days after your surgery. * Your incision does not require any special creams or ointments. * Simply clean it with soap and water, dry and re-dress with a clean bandage afterwards. Incision: * Keep incision clean, dry and protected until your first follow-up appointment. * Some amount of drainage and redness is normal. Any drainage should be fairly clear and not have a foul odor. * If you feel anything is wrong or you have excessive drainage, please call us. * Your stitches and pool will be removed 10-14 days after your surgery. At the time of your first post-op visit. * Neck surgeries are typically closed with a suture underneath the skin. The steri-strips over the incision should be maintained until we see you in the office. Bracing: * You may be provided with a back or neck brace to encourage good posture and prevent injury. It will remind you not to do too much as you heal and will alert others to the fact that you have had a surgery. * Back braces may be removed for showers and when you are resting at home. They must be worn when you are walking around for any period of time or for travel. * For neck surgery, you will likely be provided with two cervical collars. The soft collar ([place] or foam rubber) is worn most commonly throughout the day and while sleeping. The plastic collar (provided at the hospital) is for showering/bathing. * Except while eating, collars should remain in place. More specifically, bracing is provided for a purpose and should be worn. * Please obtain your brace or collars prior to your operation and bring them to the hospital with you on the day of surgery. * You should also bring your collars to your post-op appointment with Dr. Garcia. You should always take good care of your body and practice healthy habits, especially following surgery. You should: * Follow your doctor's treatment plan * Sit and stand properly with good posture (ears over shoulders, shoulders over hips) Don't slouch * Learn to lift correctly * Exercise regularly (low-impact aerobic exercise is especially good, but check with your doctor first) * Generally, be up and walking for 5-10 minutes at a time at least 3-4 times per day from the day you get home * Increasing walking to tolerance until you can walk for 20-30 minutes at a time * Attain and maintain a healthy body weight * Eat healthy foods ( a well-balanced, low-fat diet rich in fruits and vegetables) and get enough calcium * Avoid excessive use of alcohol When to call our office - If you notice any of the following: * Increased pain not relieve by pain medicine * Fevers greater then 100 degrees F, chills or flu symptoms * Increased redness around incision * Drainage from the incision that is not clear * Any foul smelling drainage * Swelling or fluid collection beneath the skin Miscellaneous: * In the hospital, you may be given a walker or cane for support while walking. These are temporary needs and are intended to prevent injuries due to falls. You may discontinue them when you feel strong and steady enough on your feet. * Sleep in a comfortable position. We find that many patients find a lounge chair or recliner with several pillows to be beneficial in the early post-operative period. * The support stockings should be used for 7-10 days and may be discontinued when you are back to walking more and conducting usual household activities. No problem is insignificant. We are here to help you and get you well. Contact us at [phone]. Definitions: Foraminotomy: If part of the disc or a bone spur (osteophyte) is pressing on a nerve as it leaves the vertebra (through an exit called the foramen), a foraminotomy may be done. Otomy means "to make an opening." A foraminotomy is making the opening of the foramen larger, so the nerve can exit without being compressed. Laminotomy: Similar to the foraminotomy, a laminotomy makes a larger opening, this time in your bony plate protecting your spinal canal and spinal cord (the lamina). The lamina may be pressing on your nerve, so the surgeon may make more room for the nerves using a laminotomy. Laminectomy: Sometimes, a laminotomy is not sufficient. The surgeon may need to remove all or part of the lamina. This procedure is called a laminectomy. This can often be done at many levels without any harmful effects. Current Hospital Diet Patient's current hospital diet: Diabetes Type 2 Diet Discharge Diet Recommended Diet: Low Sodium Diet (2gm Na) Procedures Procedures Performed: L2-L3, L3-L4, L4-L5 Laminectomies Pending Studies Studies pending at discharge: no Laboratory Results Hemoglobin A1c Test 06/29/17 08:59 Range/Units Estimated Average Glucose 134 mg/dl Hemoglobin A1c 6.3 H 4.5-5.6 % Medical Emergencies . Who to Call and When: Medical Emergencies: If at any time you feel your situation is an emergency, please call 911 immediately. . Non-Emergent Contact Non-Emergency issues call your: Primary Care Provider . "Provider Documentation" section prepared by Uday Garcia. . VTE Core Measure Inpt VTE Proph given/why not?: Treatment not indicated
--- NOTE | 2017-07-01 07:44 | Clinical Documentation Query ---
CLINICAL DOCUMENTATION QUERY 71-y/o male who has undergone L2-L5 fusion. After surgery patient had fall on 06/29 at approx 1545. Since that time until 06/30 @ 0800 patient was only oriented x1. Orthopedics has hypothesized this to be likely metabolic. Patient was hypokalemic 2.9, hypomagnesia 1.5, and hyperglycemic 199. In your clinical opinion is this patient being managed for: ( ) Metabolic encephalopathy ( ) Not Agree ( ) Other explanation of clinical findings (Please Explain) ( ) Unable to determine (Please Define) ( ) Need to Discuss The medical record reflects the following clinical findings, treatment, and risk factors. Clinical Indicators: As above. Treatment: IV Mag, PO Potassium, insulin SSC, DC held Risk Factors: Age, serum glucose and electrolyte abnormalities. Please clarify and document your clinical opinion in the progress notes and discharge summary. Terms such as "probable", "suspected", "likely", "questionable", "possible", or "still to be ruled out" are acceptable. IF IN AGREEMENT, YOU MUST DOCUMENT ABOVE DIAGNOSTIC STATEMENT IN DAILY PROGRESS NOTES AND DISCHARGE SUMMARY. This document is not part of the patient's record. Thank You, Toni Ordonez, RN [phone]
--- NOTE | 2017-07-01 07:46 | Clinical Documentation Query ---
CLINICAL DOCUMENTATION QUERY 71-y/o male who has undergone L2-L5 fusion. After surgery patient had fall on 06/29 at approx 1545. Since that time until 06/30 @ 0800 patient was only oriented x1. Orthopedics has hypothesized this to be likely metabolic. Patient was hypokalemic 2.9, hypomagnesia 1.5, and hyperglycemic 199. In your clinical opinion is this patient being managed for: ( ) Metabolic encephalopathy treated and resolved ( ) Not Agree ( ) Other explanation of clinical findings (Please Explain) ( X ) Unable to determine (Please Define) Did not see patient when disoriented. Completely alert/oriented x3 during exam prior to treatment of mag and potassium. Could be secondary to ?hospital delirium. Also, fall was mechanical as patient's knee/ankle gave out. ( ) Need to Discuss The medical record reflects the following clinical findings, treatment, and risk factors. Clinical Indicators: As above. Treatment: IV Mag, PO Potassium, insulin SSC, DC held Risk Factors: Age, serum glucose and electrolyte abnormalities. Please clarify and document your clinical opinion in the progress notes and discharge summary. Terms such as "probable", "suspected", "likely", "questionable", "possible", or "still to be ruled out" are acceptable. IF IN AGREEMENT, YOU MUST DOCUMENT ABOVE DIAGNOSTIC STATEMENT IN DAILY PROGRESS NOTES AND DISCHARGE SUMMARY. This document is not part of the patient's record. Thank You, Toni Ordonez, GOKUL [phone]
[2017-07-01] MEDS: POLYETHYLENE (MIRALAX) 17 GM PACK PO SCH (08:48)
[2017-07-01 08:50] VITALS: PULSE 58
[2017-07-01] MEDS: CLOPIDOGREL BISULFATE 75 MG TAB PO SCH (08:51)
[2017-07-01] MEDS: LOSARTAN POTASSIUM 50 MG TAB PO SCH (08:51)
[2017-07-01] MEDS: AMLODIPINE BESYLATE 5 MG TAB PO SCH (08:52)
[2017-07-01] MEDS: CARVEDILOL 12.5 MG TAB PO SCH (08:53)
[2017-07-01] MEDS ORDERED: POTASSIUM CHLR 10 MEQ / WTR 10 MEQ in PREMIXED WATER 100 ML IV ONE (09:00)
[2017-07-01] MEDS ORDERED: MAGNESIUM SULFATE 1GM / D5W 1 GM in PREMIXED IN D5W 100 ML IV ONE (09:00)
[2017-07-01] MEDS ORDERED: ISOSORBIDE MONONITRATE 60 MG TABCR PO SCH (09:00)
[2017-07-01] MEDS ORDERED: POTASSIUM CHLORIDE 20 MEQ TABCR PO ONE (09:00)
--- NOTE | 2017-07-01 10:06 | Hospitalist Progress Note ---
Hospitalist Progress Note Date of Service Jul 01, 2017. Subjective Pt evaluation today including: conversation w/ patient, lab review, review of inpatient medication list Patient resting in bed. IV Mag + Potassium infusing. States he is leaving today and did not want to talk. ROS could not be obtained due to refusal. Medications Current Inpatient Medications Medications (Trade) Dose Ordered Sig/Darlene Route Start Time Stop Time Status Last Admin Dose Admin Acetaminophen (Tylenol Tab) 650 mg Q6H PRN PO 06/28/17 09:30 07/28/17 09:29 Future Hold Hydromorphone HCl (Dilaudid Inj) 1 mg Q3H PRN IV 06/28/17 09:30 07/12/17 09:29 Hydromorphone HCl (Dilaudid Inj) 1.5 mg Q3H PRN IV 06/28/17 09:30 07/12/17 09:29 Promethazine HCl 12.5 mg/Sodium Chloride 50.5 ml @ 202 mls/hr Q6H PRN IV 06/28/17 09:30 07/28/17 09:29 Ondansetron HCl (Zofran Inj) 4 mg Q6H PRN IV 06/28/17 09:30 07/28/17 09:29 Metoclopramide HCl (Reglan Inj) 10 mg Q6H PRN IV 06/28/17 09:30 07/28/17 09:29 Lorazepam (Ativan Tab) 1 mg Q6H PRN PO 06/28/17 09:30 07/28/17 09:29 06/28/17 20:46 1 MG Lorazepam 1 mg/ Syringe 0.5 ml @ 1 mls/min Q6H PRN IV 06/28/17 09:30 07/28/17 09:29 Polyethylene (Miralax Powder Packet) 17 gm DAILY PO 06/29/17 09:00 07/29/17 08:59 Bisacodyl (Dulcolax Tab) 5 mg DAILY PRN PO 06/29/17 06:00 07/29/17 05:59 Bisacodyl (Dulcolax Supp) 10 mg DAILY PRN [place] 06/29/17 06:00 07/29/17 05:59 Magnesium Hydroxide (Milk Of Magnesia Susp) 30 ml DAILY PRN PO 06/28/17 09:30 07/28/17 09:29 Diphenhydramine HCl (Benadryl Cap) 25 mg Q6H PRN PO 06/28/17 09:30 07/28/17 09:29 Oxycodone HCl (Roxicodone Immediate Rel Tab) 5 mg Q4H PRN PO 06/28/17 09:30 07/12/17 09:29 Oxycodone HCl (Roxicodone Immediate Rel Tab) 10 mg Q4H PRN PO 06/28/17 09:30 07/12/17 09:29 06/29/17 07:41 10 MG Amlodipine Besylate (Norvasc Tab) 5 mg QAM PO 06/29/17 09:00 07/29/17 08:59 07/01/17 08:52 5 MG Aspirin (Ecotrin Tab) 81 mg HS PO 06/28/17 21:00 07/28/17 20:59 06/30/17 21:14 81 MG Atorvastatin Calcium (Lipitor Tab) 20 mg QPM PO 06/28/17 21:00 07/28/17 20:59 06/30/17 21:14 20 MG Carvedilol (Coreg Tab) 12.5 mg BID PO 06/28/17 21:00 07/28/17 20:59 06/30/17 21:14 12.5 MG Clopidogrel Bisulfate (plAVix TAB) 75 mg QAM PO 06/29/17 09:00 07/29/17 08:59 07/01/17 08:51 75 MG Diphenoxylate HCl/ Atropine (Lomotil Tab) 2 tab UD PRN PO 06/28/17 09:30 07/28/17 09:29 Escitalopram Oxalate (Lexapro Tab) 20 mg QPM PO 06/28/17 21:00 07/28/17 20:59 06/30/17 21:14 20 MG Losartan Potassium (coZAAR TAB) 100 mg QAM PO 06/29/17 09:00 07/29/17 08:59 07/01/17 08:51 100 MG Pioglitazone HCl (ACTos TAB) 30 mg HS PO 06/28/17 21:00 07/28/17 20:59 06/30/17 21:14 30 MG Acetaminophen 1000 mg/Empty Bag 100 ml @ 400 mls/hr Q8H IV 1/8/18 12:00 07/28/17 11:59 07/01/17 05:06 400 MLS/HR Miscellaneous (Iv Fluids Completed) 1 ea PRN PRN N/A 06/28/17 10:00 06/28/18 09:59 Menthol (Nice Oksana) 1 oksana PRN PRN PO 06/28/17 17:45 07/28/17 17:44 06/28/17 18:08 1 OKSANA Glucose (Glucose 40% Gel) 15-30 GRAMS 15 GRAMS... UD PRN PO 06/28/17 23:00 07/28/17 22:59 Glucose (Glucose Chew Tab) 4-8 Tablets 4 Tabl... UD PRN PO 06/28/17 23:00 07/28/17 22:59 Dextrose (Dextrose 50% 50ML Syringe) 25-50ML OF 50% DW IV FOR... UD PRN IV 06/28/17 23:00 07/28/17 22:59 Glucagon (Glucagon Inj) 1 mg UD PRN SQ 06/28/17 23:00 07/28/17 22:59 Isosorbide Mononitrate (Imdur Ext Rel Tab) 60 mg QAM PO 07/01/17 09:00 07/31/17 08:59 07/01/17 08:51 60 MG Objective Vital Signs Date Time Temp Pulse Resp B/P (MAP) Pulse Ox O2 Delivery O2 Flow Rate FiO2 07/01/17 08:50 58 07/01/17 08:10 Room Air 07/01/17 06:59 36.9 53 19 127/71 (89) 96 Room Air 06/30/17 23:38 36.7 54 16 112/58 (76) 96 Room Air 06/30/17 21:20 Room Air CPAP 06/30/17 21:12 63 140/71 (94) 06/30/17 14:52 36.8 62 18 133/73 (93) 95 Room Air Physical Exam General Appearance: no apparent distress Eyes: normal inspection, PERRL ENT: hearing grossly normal Neck: supple Respiratory/Chest: + pertinent finding (refused) Cardiovascular: + pertinent finding (refused ) Abdomen: + pertinent finding (refused ) Extremities: + pertinent finding (refused ) Neurologic/Psychiatric: alert, oriented x 3 Skin: normal color, warm/dry, no rash Laboratory Results Last 24 Hours Test 06/30/17 11:48 06/30/17 17:04 06/30/17 20:39 07/01/17 05:51 Bedside Glucose 111 mg/dl 106 mg/dl 113 mg/dl White Blood Count 9.50 K/uL Red Blood Count 3.48 M/uL Hemoglobin 10.3 g/dL Hematocrit 31.3 % Mean Corpuscular Volume 89.9 fL Mean Corpuscular Hemoglobin 29.6 pg Mean Corpuscular Hemoglobin Concent 32.9 g/dl RDW Standard Deviation 49.6 fL RDW Coefficient of Variation 15.0 % Platelet Count 180 K/uL Mean Platelet Volume 10.8 fL Sodium Level 138 mmol/L Potassium Level 2.9 mmol/L Chloride Level 102 mmol/L Carbon Dioxide Level 29 mmol/L Anion Gap 7.0 mmol/L Blood Urea Nitrogen 16 mg/dl Creatinine 0.98 mg/dl Est Creatinine Clear Calc Drug Dose 84.4 ml/min Estimated GFR () 90.2 Estimated GFR (Non- 77.8 BUN/Creatinine Ratio 16.2 Random Glucose 88 mg/dl Calcium Level 8.2 mg/dl Magnesium Level 1.6 mg/dl Test 07/01/17 08:18 Bedside Glucose 97 mg/dl Assessment and Plan Patient is a 71 y/o male, with PMHx of CAD s/p MT, HLD, HTN, T2DM, anxiety, depression, HECTOR, and BPH, s/p decompression laminectomy for level L2-5, lumbar spine foraminotomy, partial facetectomy, posterior lateral bilateral fusion with allograft and autograft from L2-[address] Garcia on 06/28. s/p lumbar decompression surgery by Dr. Garcia on 06/28: - Surgical management, pain management, PT/OT, and DVT prophylaxis as per primary team - Bowel regimen ordered - Encouraged incentive spirometer - Follow postop CBC and PRP -- H&H- STABLE -- Leukocytosis, likely secondary to postop response/IV steroids- RESOLVED Hypokalemia at 2.9: - Replaced w/ PO 40 mEq KCL supplement and IV 10 mEq x1 - KCL 20 mEq BID x3 days at discharge- HSNV follow K level and replace PRN Hypomagnesemia at 1.6: Replace w/ 1 gm Mag IV x1, follow mag level and replace PRN CAD s/p MT w/ 6 stents, angina, HLD, HTN- follows w/ Dr. Deluca: - Continue Losartan 100 mg daily, ASA 81 mg daily, Lipitor 20 daily, Coreg 12.5 mg BID, Imdur 60 mg daily, Plavix 75 mg daily, Norvasc 5 mg daily - Mildly hypertensive, likely secondary to pain- will continue to monitor- RESOLVED T2DM w/ hyperglycemia, likely secondary to IV steroids- hgbA1c 6.3%: - Continue Actos 30 HS - BSG ACHS and ISS - Pharmacy consulted for glycemic management Anxiety, depression: Lexapro 30 mg daily HECTOR, obesity: Continue CPAP HS DVT prophylaxis: As per surgical team- ASA 81 mg daily Code Status: LEVEL I, FULL Dispo: As per primary team- planning for HSNV today
--- NOTE | 2017-07-01 10:09 | Consultant Recommendations ---
Landfill Attendant Recommendations Date of Service Jul 01, 2017. Landfill Attendant Recommendations s/p lumbar decompression surgery by Dr. Garcia on 06/28: Management as per orthopaedic recommendations Hypokalemia at 2.9 on 07/01: - Replaced w/ PO 40 mEq KCL + IV 10 mEq on 07/01 - KCl 20 mEq BID x3 days at discharge- HSNV follow K level and replace PRN Hypomagnesemia at 1.6 on 07/01: - Replace w/ 1 gm Mag IV x1 on 07/01 - Follow mag level and replace PRN CAD s/p [place] w/ 6 stents, angina, HLD, HTN- follows w/ Dr. Deluca: - Continue Losartan 100 mg daily, ASA 81 mg daily, Lipitor 20 daily, Coreg 12.5 mg BID, Imdur 60 mg daily, Plavix 75 mg daily, Norvasc 5 mg daily T2DM w/ hyperglycemia, likely secondary to IV steroids- hgbA1c 6.3%: Continue Actos 30 HS Anxiety, depression: Lexapro 30 mg daily HECTOR, obesity: Continue CPAP HS DVT prophylaxis: As per surgical team- ASA 81 mg daily Code Status: LEVEL I, FULL
[2017-07-01] MEDS ORDERED: MCRK20 PO (10:47)
[2017-07-01] MEDS ORDERED: HYDR-5688 PO (11:18)
--- NOTE | 2017-07-01 11:29 | HISTORY & PHYSICAL EXAMINATION ---
DATE OF ADMISSION: 06/30/2017 ____ required for a patient, Danilo Morales, [facility]. The query was that the patient had confusion after surgery ____ it was a metabolic issue. I agree, I think it was a metabolic encephalopathy short term, treated appropriately with medical management.
--- NOTE | 2017-07-01 11:34 | DISCHARGE SUMMARY ---
SUBJECTIVE: He is alert, oriented today. Still some weakness to the lower extremities. Pain seems controlled. He is not confused. No shortness of breath, chest pain, abdominal discomfort negative. Moves extremities. Vital signs stable. Wound protected; not evaluated. ASSESSMENT: 1. Status post lumbar spine reconstructive surgery, diabetic control, slight confusion day 2 postoperatively. 2. Coronary artery disease. The patient is doing well postoperatively. Will try to get him to [facility] rehab. I think it is an appropriate plan for him. He has instructions, precautions, education that was provided in the office also here at the hospital. I should see him back in the office in approximately 2 weeks for suture removal, earlier if there is a problem. Medical questions should be directed to the medical physicians. I will take care of any spinal related problems.
[2017-07-01 13:38] VITALS: BP 127/71; PULSE 58; TEMP 36.9; O2SAT 96
== END 2017-07-01 14:46 | DRG 459 ==
LOC: C.ACU 05:11 → C.3E 07:00 → ENRESERV 10:20 → OBSVTOIN 06-30 12:54
PROVIDERS: ADMIT Orthopaedic Surgery Orthopaedic Surgery of the Spine; ATTEND Orthopaedic Surgery Orthopaedic Surgery of the Spine
PROC: 0SG1071 Fusion of 2 or more Lumbar Vertebral Joints with Autologous Tissue Substitute, Posterior Approach, Posterior Column, Open Approach (ICD-10-PCS; principal; 2017-06-28 07:15)
DX: M48.061 Spinal stenosis, lumbar region without neurogenic claudication (principal); G93.41 Metabolic encephalopathy; I25.10 Atherosclerotic heart disease of native coronary artery without angina pectoris; N18.3 Chronic kidney disease, stage 3 (moderate); I12.9 Hypertensive chronic kidney disease with stage 1 through stage 4 chronic kidney disease, or unspecified chronic kidney disease; G47.30 Sleep apnea, unspecified; E78.00 Pure hypercholesterolemia, unspecified; E83.42 Hypomagnesemia; E66.9 Obesity, unspecified; F41.9 Anxiety disorder, unspecified; E87.6 Hypokalemia; F32.9 Major depressive disorder, single episode, unspecified; E11.65 Type 2 diabetes mellitus with hyperglycemia; T38.0X5A Adverse effect of glucocorticoids and synthetic analogues, initial encounter; Z68.36 Body mass index [BMI] 36.0-36.9, adult; I25.2 Old myocardial infarction; Z79.82 Long term (current) use of aspirin

== ENCOUNTER → 2017-08-17 | Outpatient (CLI) | payer OTHER ==
[~2017-08-17] MED LIST changes: +HYDR-5688 PO; -ISM20 PO; +ISOS60TA25 PO; +MCRK20 PO
[2017-08-17 13:36] LABS: BLOOD UREA NITROGEN 13 mg/dl (7-18); CREATININE 1.28 mg/dl (0.60-1.40)
== END | disposition home or self-care (01) ==
LOC: C.LABBC 11:10
PROVIDERS: ATTEND Urology
DX: R97.20 Elevated prostate specific antigen [PSA] (principal); N52.9 Male erectile dysfunction, unspecified

== ENCOUNTER 2023-10-22 10:46 | Observation (INO) ==
--- NOTE | 2023-09-23 12:17 | PAT Medication Instructions ---
Medication Instructions Date of Service September 23, 2023 Home Medications aspirin 81 mg tablet,delayed release 81 mg PO QPM clopidogrel 75 mg tablet 75 mg PO QAM escitalopram oxalate 20 mg tablet 20 mg PO QPM omeprazole magnesium 20 mg tablet,delayed release 20 mg PO QAM semaglutide 0.25 mg or 0.5 mg (2 mg/3 mL) subcutaneous pen injector (Ozempic) 0.5 mg subcut WK empagliflozin 25 mg tablet (Jardiance) 12.5 mg PO QAM tamsulosin 0.4 mg capsule (Flomax) 0.4 mg PO HS atorvastatin 40 mg tablet 20 mg PO QPM carvedilol 6.25 mg tablet 6.25 mg PO UD losartan 25 mg tablet 12.5 mg PO QAM oxycodone-acetaminophen 10 mg-325 mg tablet 1 tab PO Q6H PRN STOP 7 days before surgery semaglutide 0.25 mg or 0.5 mg (2 mg/3 mL) subcutaneous pen injector (Ozempic) 0.5 mg subcut WK STOP 3 days before surgery empagliflozin 25 mg tablet (Jardiance) 12.5 mg PO QAM Continue as directed carvedilol 6.25 mg tablet 6.25 mg PO UD ASK your prescriber and surgeon aspirin 81 mg tablet,delayed release 81 mg PO QPM clopidogrel 75 mg tablet 75 mg PO QAM(in order for spinal or epidural anesthesia, plavix needs to be stopped 7 days before surgery. Please check if okay with doctor that prescribes this to you) DO NOT take the morning of surgery losartan 25 mg tablet 12.5 mg PO QAM Take morning of surgery With a small sip of water, OTHERWISE NOTHING TO EAT OR DRINK AFTER MIDNIGHT: omeprazole magnesium 20 mg tablet,delayed release 20 mg PO QAM oxycodone-acetaminophen 10 mg-325 mg tablet 1 tab PO Q6H PRN(if needed) Take evening before surgery escitalopram oxalate 20 mg tablet 20 mg PO QPM tamsulosin 0.4 mg capsule (Flomax) 0.4 mg PO HS atorvastatin 40 mg tablet 20 mg PO QPM oxycodone-acetaminophen 10 mg-325 mg tablet 1 tab PO Q6H PRN(if needed) Other Notes If you have any questions please call us at [phone] or [phone] or [phone] or [phone]
--- NOTE | 2023-09-29 11:43 | Anesthesiology Consultation ---
Date of Service September 29, 2023 Assessment & Plan (1) Encounter for pre-operative examination: - upcoming [place] cardiology office visit 10/15/23: workload note sent to Dr. Yap regarding optimization and upcoming surgery. - check BSG am DOS. - cardiology office visit 04/13/23 [place]: "...Coronary artery disease: No angina but his activity level is somewhat restricted because of his orthopedic issues. The echo shows no concerning findings. His blood pressure and heart rate are at target. Continue guideline directed medical therapy for secondary prevention including; low-dose aspirin, statin, carvedilol, and he has been on Plavix long- term. NUNES (dyspnea on exertion): This is minimal but his exertion is also minimal. He does have LVH and mild MR which could cause some exertional dyspnea. Fortunately, his EF is normal. The fact that he lost significant weight may also help. No further work-up or management at this time. However, if he undergoes cardiac surgery I do recommend that he undergo stress test...Low BP: Actually diastolic he is hypertensive at the moment and his systolic is upper limit of acceptable. He discontinued his long-acting nitrate as well as his angiotensin receptor david. I recommend he resume the angiotensin recepto r david but continue to hold on the isosorbide mononitrate. He will also continue with his carvedilol 6.25 mg p.o. twice daily for myocardial protection..." - semaglutide instructions: Patient informed at PAT visit to stop 7 days prior to surgery- voiced understanding. Patient advised to check with prescriber to see if alternative diabetic management changes recommended while holding semaglutide- if so, patient to call back to PAT to update chart and discuss if any further preop medication instructions needed. - Outpatient joint assessment: Patient is currently scheduled for inpatient pat hway. If re-evaluated and patient/surgeon requests outpatient pathway, patient is not recommended candidate for outpatient joint program from anesthesia standpoint Chart Review Chart Review: Pending: Refer to Additional Notes / Consult section and Patient seen in Pre Admission Testing Teaching & Discussion Pre-Anesthesia Teaching/Discussion Notes: Instructed NPO after midnight before surgery, except medications with 15 cc of water. Medication instructions provided according to the PAT guidelines. History Surgery Operation Date: 10/22/23 08:50 Proposed Procedures p Left Total Knee Arthroplasty - Eliceo Watson MD Height/Weight Height: 5 ft 7 in Weight: 89.9 kg Allergies Allergy/AdvReac Type Severity Reaction Status Date / Time CHRISTINE Inhibitors Allergy Intermediate ? hives Verified 09/15/23 09:12 metformin Allergy Intermediate dry mouth, Verified 09/15/23 09:12 diarrhea shellfish derived Allergy Intermediate hives Verified 09/15/23 09:12 Sulfa (Sulfonamide Allergy Intermediate hives Verified 09/15/23 09:12 Antibiotics) sitagliptin [From [facility]] Allergy Unknown PT DOESN'T Verified 09/15/23 09:12 REMEMBER Medications Home Medications Medication Instructions Recorded Confirmed Last Taken blood sugar diagnostic (Accu-Chek #10 ea 11/25/18 04/13/23 Unknown Patience Plus test strips) aspirin 81 mg tablet,delayed 81 mg PO QPM 02/21/19 09/15/23 Unknown release clopidogrel 75 mg tablet 75 mg PO QAM #90 tabs 02/21/19 09/15/23 Unknown escitalopram oxalate 20 mg tablet 20 mg PO QPM #30 tabs 02/21/19 09/15/23 Unknown omeprazole magnesium 20 mg 20 mg PO QAM 07/07/19 09/15/23 Unknown tablet,delayed release semaglutide 0.25 mg or 0.5 mg (2 0.5 mg subcut WK 03/22/23 09/15/23 Unknown mg/3 mL) subcutaneous pen injector (Ozempic) empagliflozin 25 mg tablet 12.5 mg PO QAM 04/13/23 09/15/23 Unknown (Jardiance) tamsulosin 0.4 mg capsule (Flomax) 0.4 mg PO HS 04/13/23 09/15/23 Unknown atorvastatin 40 mg tablet 20 mg PO QPM 09/15/23 09/15/23 Unknown carvedilol 6.25 mg tablet 6.25 mg PO UD 09/15/23 09/15/23 Unknown losartan 25 mg tablet 12.5 mg PO QAM 09/15/23 09/15/23 Unknown oxycodone-acetaminophen 10 mg-325 1 tab PO Q6H PRN Pain 09/15/23 09/15/23 Unknown mg tablet Past Medical History Medical History (Updated 09/29/23 @ 11:39 by Krys Rdz PA-C) Acid reflux controlled, stable per pt Arthritis BPH (benign prostatic hyperplasia) Coronary artery disease followed by Dr. Yap Degenerative disc disease Depression Diabetes mellitus, type 2 NIDDM Diabetic neuropathy hands and feet History of kidney stones no surgery required; last renal stone approx. more than 1 yr ago History of skin cancer face s/p excision Hyperlipidemia Hypertension controlled, stable per pt Lumbar postlaminectomy syndrome Myocardial Infarction 1997 Sleep apnea no device Spinal cord stimulator status intact>advised to bring remote AM DOS Patient denies h/o stroke, seizures, heart failure, blood clots/DVTs or blood transfusions. Exercise / Class Metabolic Activity III < 4 Walking/Shop/Light housework (denies chest discomfort or shortness of breath with usual activities, ambulates with cane) Past Family History Family History Father Myocardial infarction Grandfather (Paternal) Prostate cancer Denies family history of Ovarian cancer Breast cancer Colorectal cancer Past Surgical History Surgical History (Updated 09/15/23 @ 09:28 by Vickie Pierson RN) H/O parathyroidectomy benign adenoma removed History of anesthesia reaction with back surgery>got confused/agitated History of appendectomy History of cataract surgery rt/left History of colonoscopy History of coronary artery stent placement stent x 2 (1997) in [place], st[place]3 [place]2010[place], [place] History of esophagogastroduodenoscopy (EGD) History of tonsillectomy and adenoidectomy History of tooth extraction Previous back surgery L2-L5 laminectomy/fusion: 06/28/2017: Grade view 1, MAC #[address] [facility] Past Anesthesia History Other (confusion/agitation; father with confusion post-op) History of PONV No Hx of PONV and No Hx of Motion Sickness Social History Smoking Status: Former smoker tobacco type: cigarettes Do You Dip or Chew Tobacco: No Smoking End Date: 1988 Hx Alcohol Use: No substance use type: does not use Review of Systems Patient denies chest pain, shortness of breath, dyspnea on exertion, fever, chills, cough, wheezing, or palpitations. Physical Exam Vital Signs Vitals BP 103/70 P 68 TEMP 99.2 SP02 96% on RA RESP 17 Physical Patient resting comfortably in chair in no acute distress, alert and oriented, responding appropriately throughout visit Full cervical extension range of motion without pain TMD 3.5 finger breadths Mallampati Score 2 Dentition: edentulous, full upper and lower dentures Lungs: normal respiratory effort. Good air movement, clear throughout to auscultation, no adventitious breath sounds Cardiac: regular rate and rhythm, no murmurs noted Carotid arteries: negative bruit bilat Lab Results Anesthesia Preop Results Results Anesthesia Widget: WBC 7.80 K/ul (4.8-10.8) 09/29/23 Hgb 14.5 g/dl (14.0-18.0) 09/29/23 Hct 46.7 % (42.0-52.0) 09/29/23 Plt 218 K/uL (130-400) 09/29/23 Na 140 mmol/L (136-145) 09/29/23 K 4.1 mmol/L (3.5-5.1) 09/29/23 Cl 105 mmol/L (98-107) 09/29/23 CO2 27 mmol/L (21-32) 09/29/23 BUN 13 mg/dl (6-23) 09/29/23 Creat 1.11 mg/dl (0.6-1.4) 09/29/23 Glucose Level 134 mg/dl (70-99(Fasting)) H 09/29/23 PT 10.7 Seconds (9.0-12.0) 09/29/23 PTT 27 Seconds (21-31) 09/29/23 INR 1.0 (0.9-1.1) 09/29/23 HA1c 6.5 % (4.5-5.6) H 09/29/23 Blood Type O Positive 09/29/23 Antibody Screen NEGATIVE 09/29/23 Testing Electrocardiogram Date: 03/31/23 NSR, rate 77 bpm Possible inferior infarct, age undetermined Cannot rule out anterior infarct, age undetermined Chest X-Ray Date: 09/29/23 No significant change compared to the prior study. No acute process. Echocardiogram Date: 04/02/23 EF 55-60% Apical septal wall akinesis Small area of the distal anteroseptal apical thinning/aneurysm. No associated thrombus. Moderate LVH Nodular thickening of the noncoronary cusp of the aortic valve. Mild mitral regurgitation
--- NOTE | 2023-10-15 13:51 | History & Physical Report ---
Date of Service October 15, 2023 Assessment & Plan (1) Left knee DJD: 77-year-old gentleman with advanced bilateral knee DJD. The left side is been more symptomatic than the right. He is failed conservative treatment like to have his knee fixed. He would like both knees done. Plan: Taken to the operating room do a left knee replacement. Will do 1 knee at a time make sure he is happy for considering the second. There is cements of total knee replacement were explained the patient clued but not limited to DVT PE infection neurological and vascular bleeding palm pain limb range of motion sepsis fairly with symptoms incomplete relief of symptoms excetra. The patient understands and desires to proceed. Informed consent is obtained. Will pending a final cardiology clearance as he is seeing Dr. Yap today. He had a stress test done on the . He is hoping a do a late start in the OR due to her travel. As far as DVT prophylaxis will use her Plavix postoperatively. He is planned to be discharged to home and have a friend assist in his care (2) Degenerative arthritis of knee, bilateral: History of Present Illness Chief Complaint: . Bilateral knee pain left side greater than the right. Primary Care Provider: Tavares Quiroz M.D. . Patient is a 77-year-old gentleman who presents for surgical treatment of his knees. Got a long history of bilateral knee pain discomfort is gradually gotten worse over time. He has been treated elsewhere with injections which have not helped at all recently. Pains become more disabling. The oral medicines do not help either. He has trouble of trouble getting around 11 an independent lifestyle. He like to consider knee surgery. The left side is a bit worse than the right symptomatically. Allergies Allergy/AdvReac Type Severity Reaction Status Date / Time CHRISTINE Inhibitors Allergy Intermediate ? hives Verified 10/15/23 13:09 metformin Allergy Intermediate dry mouth, Verified 10/15/23 13:09 diarrhea shellfish derived Allergy Intermediate hives Verified 10/15/23 13:09 Sulfa (Sulfonamide Allergy Intermediate hives Verified 10/15/23 13:09 Antibiotics) sitagliptin [From Januvia] Allergy Unknown PT DOESN'T Verified 10/15/23 13:09 REMEMBER Home Medications Medication Instructions Recorded Confirmed Type blood sugar diagnostic (Accu-Chek #10 ea 11/25/18 10/15/23 History Patience Plus test strips) aspirin 81 mg tablet,delayed 81 mg PO QPM 02/21/19 10/15/23 History release clopidogrel 75 mg tablet 75 mg PO QAM #90 tabs 02/21/19 10/15/23 History escitalopram oxalate 20 mg tablet 20 mg PO QPM #30 tabs 02/21/19 10/15/23 History omeprazole magnesium 20 mg 20 mg PO QAM 07/07/19 10/15/23 History tablet,delayed release semaglutide 0.25 mg or 0.5 mg (2 0.5 mg subcut WK 03/22/23 10/15/23 History mg/3 mL) subcutaneous pen injector (Ozempic) empagliflozin 25 mg tablet 12.5 mg PO QAM 04/13/23 10/15/23 History (Jardiance) tamsulosin 0.4 mg capsule (Flomax) 0.4 mg PO HS 04/13/23 10/15/23 History atorvastatin 40 mg tablet 20 mg PO QPM 09/15/23 10/15/23 History losartan 25 mg tablet 12.5 mg PO QAM 09/15/23 10/15/23 History oxycodone-acetaminophen 10 mg-325 1 tab PO Q6H PRN Pain 09/15/23 10/15/23 History mg tablet Wheeled Walker #1 ea 10/11/23 10/15/23 Rx carvedilol 6.25 mg tablet 6.25 mg PO UD 10/15/23 10/15/23 History Past Med/Surg History Medical History Arthritis History of kidney stones no surgery required; last renal stone approx. more than 1 yr ago BPH (benign prostatic hyperplasia) Diabetes mellitus, type 2 NIDDM History of skin cancer face s/p excision Depression Diabetic neuropathy hands and feet Myocardial Infarction 1997 Spinal cord stimulator status intact>advised to bring remote AM DOS Degenerative disc disease Sleep apnea no device Lumbar postlaminectomy syndrome Hypertension controlled, stable per pt Hyperlipidemia Coronary artery disease followed by Dr. Yap Acid reflux controlled, stable per pt Surgical History History of esophagogastroduodenoscopy (EGD) H/O parathyroidectomy benign adenoma removed History of tooth extraction History of tonsillectomy and adenoidectomy History of cataract surgery rt/left History of anesthesia reaction with back surgery>got confused/agitated History of colonoscopy History of appendectomy History of coronary artery stent placement stent x 2 (1997[place] in [place], [place]3 [place], [place] Previous back surgery L2-L5 laminectomy/fusion: 06/28/2017: Grade view 1, MAC #4 at [facility] Family History Father Myocardial infarction Grandfather (Paternal) Prostate cancer Denies family history of Ovarian cancer Breast cancer Colorectal cancer Social History Smoking Status: Former smoker Age Started Using Tobacco: 20; Age Quit Using Tobacco: 41; packs per day: 2; Second Hand Exposure: Yes (in the past); Do You Dip or Chew Tobacco: No; Hx Alcohol Use: No Preferred Language: Croatian Communication Ability: Effective Visual Impairment: No Limitations Hearing Ability: Normal Tire Buffer Required: No Beliefs That Will Affect Care: None marital status: Single Current Living Situation: Alone current occupational status: retired Feels Safe at Home: Yes Dental Care, Regularly: No Physical Activity Frequency: Does not Exercise Assistive Devices: Cane and Glasses Review of Systems All systems reviewed & are unremarkable except as noted in HPI & below. Physical Exam . Physical examination was a pleasant 77-year-old male. Looks in reasonably good health. Examination of the both knees reveals a patient ambulates with the use of a cane. Examination left knee reveals a varus alignment to his knee. Is got bony perjury medially. Range of motion 5-1 20. No instability. No pain with hip motion. Examination of right knee reveals a similar varus alignment. He is tender with medial joint line. Range of motion 5-1 25. No instability. He is neurovascular intact. Constitutional WD/WN, vitals as above Respiratory normal respiratory effort, lungs clear to auscultation Cardiovascular RRR, no murmur, no edema Gastrointestinal (Abdomen) normal bowel sounds, soft, nontender, no hepatosplenomegaly Results & Data Results & Data Laboratory Results . Diagnostic Findings . X-rays of both knees were reviewed. Shows advanced bilateral knee DJD. Complete loss of the joint space in the medial side of both knees. The right knee is actually probably little bit worse than the left. PG Care Time/CCT Total # of Minutes Spent Total Time Spent with Patient: Total time spent is greater than 50% in coordination of care (as documented) at patient's floor/unit and/or counseling patient: Coding Level of Care Code None Diagnoses Left knee DJD M17.12 Degenerative arthritis of knee, bilateral M17.0
[~2023-10-22 10:46] MED LIST changes: -ACT30 PO; -AMLO-110 PO; -ASPI81TA28 PO; -ATOR-22 PO; +BUPIVACAINE 0.5 % 5 MG/1 ML PF 10ML VIAL ONE; -CARV25TA2 PO; -CLOP1TAB15 PO; -DIPH-416 PO; -ESCI1TAB10 PO; -HYDR-5688 PO; -ISOS60TA25 PO; -LOSA1TAB38 PO; -MCRK20 PO; +ROPIVACAINE 0.5% 5 MG/ML 30 ML VIAL ONE
[2023-10-22] MEDS ORDERED: MIDAZOLAM HCL 1 MG/ML 2ML VIAL ONE (10:50)
[2023-10-22] MEDS ORDERED: PROPOFOL IV EMULSION 10 MG/ML 20 ML VIAL IV ONE (10:50)
[2023-10-22] MEDS ORDERED: fentaNYL citrate PF 100 MCG/2 ML VIAL ONE (10:50)
[2023-10-22] MEDS ORDERED: ONDANSETRON INJ 2 MG/ML 2 ML VIAL ONE (10:50)
[2023-10-22] MEDS: LR 60ML/HR IV SCH (11:40)
[2023-10-22] MEDS: LR 500ML BOLUS, THEN 15ML/HR IV SCH (11:40)
[2023-10-22] MEDS: CeleBREX 200 MG CAP PO SCH (11:41)
[2023-10-22] MEDS: FAMOTIDINE 20 MG TAB PO SCH (11:41)
[2023-10-22] MEDS: METOCLOPRAMIDE HCL 10 MG TABLET PO SCH (11:41)
[2023-10-22] MEDS: ACETAMINOPHEN 500 MG TAB PO SCH ×2 (11:41→19:56)
[2023-10-22] MEDS ORDERED: DEXAMETHASONE SOD INJ 4 MG/ML VIAL IV STA (12:32)
--- NOTE | 2023-10-22 12:33 | History & Physical Bridge Note ---
Date of Service October 22, 2023 History & Physical Bridge Note I have examined the patient, reviewed the History & Physical and in the interval since the performance of the History & Physical I have noted the following changes of clinical significance: no changes noted
[2023-10-22] MEDS: dexAMETHasone**PF** 10 MG/ML VIAL ONE (12:36)
[2023-10-22] MEDS: ceFAZolin 2000MG 2,000 MG/15 ML SYR IV SCH (13:02)
[2023-10-22] MEDS ORDERED: PROMETHAZINE HCL 6.25 MG in SODIUM CHLORIDE 0.9% 50 ML IV PRN (13:22)
[2023-10-22] MEDS ORDERED: ePHEDrine sulfate 50 MG/ML AMP IV PRN (13:22)
[2023-10-22] MEDS ORDERED: ATROPINE SULFATE 0.1 MG/ML 10ML SYR IV PRN (13:22)
[2023-10-22] MEDS ORDERED: HYDROmorphone INJ 1 MG/ML SYRINGE IV PRN (13:22)
[2023-10-22] MEDS: ROPIV 0.5% 246mg, Ketorolac 30mg, EPINEPHrine 0.5mg in NSS INFIL SCH (13:33)
[2023-10-22] MEDS: ORTHO JOINT ANESTHETIC ONE (13:33)
[2023-10-22] MEDS: TRANEXAMIC ACID 1,000 MG **IV Intra-op IV SCH (13:54)
[2023-10-22] MEDS ORDERED: GLUCAGON FOR INJ 1 MG VIAL SQ PRN (14:49)
[2023-10-22] MEDS ORDERED: GLUCOSE 40% GEL 15 GM TUBE PO PRN ×2 (14:49→20:15)
[2023-10-22] MEDS ORDERED: CARBOHYDRATES FOR HYPOGLYCEMIA PO PRN ×2 (14:49→20:15)
[2023-10-22] MEDS ORDERED: DEXTROSE 50% 50 ML SYRINGE IV PRN ×2 (14:49→20:15)
[2023-10-22] MEDS ORDERED: GLUCOSE 10 TAB/TUBE PO PRN ×2 (14:49→20:15)
--- NOTE | 2023-10-22 14:49 | Operative Report ---
PG Post Operative Report Pre & Post Diagnosis Operation Date: 10/22/23 12:30 Pre-Op Diagnosis: Left Knee Degenerative Joint Disease Post-Op Diagnosis: Left Knee Degenerative Joint Disease I identified the patient and participated in the time-out.: Yes Procedure Operation Date: 10/22/23 12:30 Actual Procedures p Left Total Knee Arthroplasty(Left) - Eliceo Watson MD Surgeon Eliceo Watson MD Bolt Threader Maged Parikh PA-C Estimated Blood Loss 50 Findings Consistent with Post-Op Diagnosis Operative findings were advanced left knee DJD. Had extensive grade 4 [id number] bone disease of the medial as well as the patellofemoral compartments. Moderate-sized joint effusion. Specimens Left knee sent for pathology. Anesthesia Type Spinal MAC Complications none Disposition Accompanied Patient To Recovery: No Indications Patient is a 77-year-old gentleman with a long history of bilateral knee pain discomfort left side greater than the right. He has been through extensive conservative treatment over the years which became less successful. X-rays show advanced left knee arthritis. He elected proceed with total knee arthroplasty. Description of Procedure Operative implants consist of: 1 Biomet Vanguard size 65 left posterior stabilized femoral component. 2. Biomet size 75 tibial tray. 3. 10 mm post stabilized polyethylene insert. 4. 31 x 8 all poly patella. The patient was taken to the operating, identified, placed on the operating table in the supine position. All contact areas were appropriately padded. IV antibiotics tried by anesthesia team. Spinal anesthetic and adductor canal block had been divided in the holding area. A left thigh tourniquet was then placed. Left lower extremities then prepped and draped in usual sterile fa shion. The left leg was elevated and exsanguinated with use of an Esmarch and tourniquet placed at 300 mmHg. An anterior approach the left knee was then performed to longitudinal incision centered over the patella. Sharp dissection was carried through subcutaneous tissue down the extensor mechanism. A medial parapatellar arthrotomy incision was made. Some subperiosteal dissection was carried out medially. The fat pad was dissected from Neath patella tendon. Lateral patellofemoral ligament was released. Patella subluxated laterally and the knee was flexed. The osteophytes taken on distal femur. The ACL and PCL were then released from distal femur and the tibia subluxated anteriorly. The external tibial alignment jig was then placed in the interface the tibia and adjusted 14 mm medially. Proximal tibial cut was made from about a millimeter bone from most deficient aspect medial tibial plateau. The tibia was then sized to a size 75. Attention drawn the femur. The distal femur examined the sharp drop with intramedullary canal was suction. A left 6 degree valgus cutting guide was placed. The distal femoral cutting block was pinned in place. Distal femoral cut was made take an additional 3 mm of bone off distal femur. The femur was then sized to a size 65. The AP cutting block was pinned parallel to the epicondylar axis which was 4 degrees of external rotation. The anterior cut, anterior chamfer, posterior cut, posterior chamfer cuts were made. The box cutting guide was placed in just slight lateral box cut with made. The knee was flexed. The remnants of the medial and lateral menisci were excised. The osteophytes were taken off the posterior aspect of the femur. Trial femoral component was placed. The tibial tray was pinned Neris external rotation and the drill and stem punch were used to create defect in proximal tibia for the tibial tray. Knee was then trialed and the 10 mm insert fit most appropriately. Attention drawn the patella. The patella was cleaned of all soft tissues. Patella thickness measured 23 mm in thickness was cut down to 14. Was sized to a size 31 patella. The lug holes were drilled for 31 patella. The lateral osteophyte was removed. Patella button was placed. Knee was taken through range of motion patella tracked nicely with no thumbs test. Attention drawn to place the permanent components. All trial components were removed. Bone plug was placed in the distal femur limit blood loss. A double batch of Palacos G cement was mixed. A Biomet Vanguard size 65 left posterior stabilized femoral component, size 75 tibial tray, a 10 mm post stabilized polyethylene insert, and a 31 x 8 all poly patella then cemented in place. The knee was brought out into full extension till the cement hardened. Final cement check was then performed. The pericapsular tissues were injected with total 100 cc of orthopedic joint mix. The patient did receive 1 g tranexamic acid. The tourniquet was then let down for final tourniquet time 54 minutes. Hemostasis assured use electrocautery. The extensor Metros then closed with combination 1 PDS suture #1 Vicryl suture in a [id number] fashion. Extensor Meclomen checked found to be intact and subcutaneous tissues then closed with 2 Dexon suture in a buried interrupted fashion skin was closed skin pool. Leg was then cleaned and dried and a sterile dressing with Xeroform, 4 fours, sterile cast padding, Navneet bandage were applied. Patient then transferred to the recovery room in stable condition. Patient tolerated procedure well and there were no complications. Maged Parikh, my physician front office assistant, was present for the entire procedure. His assistance was essential and required for appropriate patient positioning, prepping and draping, surgical exposure, performing the technical details of the operation, placement the implants, closure of the wound, and placement of the sterile bandage. I attest to the content of the Intraoperative Record and any orders documented therein. Any exceptions are noted below.
--- NOTE | 2023-10-22 15:56 | Anesthesiology Progress Note ---
Date of Service October 22, 2023 Anesthesia Post Procedure Vital Signs Vital Signs: Temp Pulse Pulse Resp BP Pulse Ox O2 Del Method 10/22/23 15:50 60 16 141/75 H 94 Room Air 10/22/23 15:40 36.4 C L 54 L 13 138/74 96 Room Air 10/22/23 15:30 52 L 15 135/77 94 Room Air 10/22/23 15:20 55 L 13 144/77 H 94 Room Air 10/22/23 15:10 56 L 15 147/80 H 93 Room Air 10/22/23 15:00 58 L 21 136/70 95 Room Air 10/22/23 14:50 55 L 12 154/73 H 100 Oxymask 10/22/23 14:42 36.5 C 58 L 16 119/58 L 98 Oxymask 10/22/23 11:26 37.1 C 63 18 139/72 95 Room Air O2 Flow Rate 10/22/23 15:50 10/22/23 15:40 10/22/23 15:30 10/22/23 15:20 10/22/23 15:10 10/22/23 15:00 10/22/23 14:50 7 10/22/23 14:42 7 10/22/23 11:26 Transfer of Care Handoff Completed per policy Notes Mental Status: alert / awake / arousable and participated in evaluation Nausea / Vomiting: adequately controlled Pain: adequately controlled Airway Patency, RR, SpO2: stable & adequate BP & HR: stable & adequate Hydration State: stable & adequate Neuraxial Anesthesia: was administered and sensory block is resolving Anesthetic Complications: no major complications apparent and Pt Satisfied with anesthetic care
--- NOTE | 2023-10-22 16:12 | XRay Report ---
TWO VIEWS LEFT KNEE CLINICAL HISTORY: Postoperative examination. FINDINGS: AP and crosstable lateral portable views of the left knee are obtained. A left knee arthrop lasty is in near anatomic alignment. There has been undersurface remodeling of the patella. No acute fracture is seen. There are expected postoperative changes around the knee including skin clips, soft tissue edema, and subcutaneous gas. IMPRESSION: Expected postoperative changes status post left knee arthroplasty. No acute fracture is s een. ACT 112: Negative or not required by law. Electronically signed by: Eh Lynch M.D. 10/22/2023 4:11 PM
[2023-10-22] MEDS ORDERED: ONDANSETRON INJ 2 MG/ML 2 ML VIAL IV PRN (16:14)
[2023-10-22] MEDS ORDERED: NALOXONE HCL 0.4 MG/1 ML VIAL/CARP IV PRN (16:14)
[2023-10-22] MEDS ORDERED: bisacodyL 10 MG SUPP PR PRN (16:14)
[2023-10-22] MEDS ORDERED: METOCLOPRAMIDE HCL INJ 5 MG/ML 2 ML VIAL IV PRN (16:14)
[2023-10-22] MEDS ORDERED: MAGNESIUM HYDROXIDE SUSP 30 ML UDC PO PRN (16:14)
[2023-10-22] MEDS: SODIUM CHLORIDE 0.9% 1,000 ML IV SCH (16:32)
[2023-10-22] MEDS ORDERED: PHARMACY GLYCEMIC MGMT CONSULT PRN (18:52)
[2023-10-22] MEDS: SENNA 8.6 MG TAB PO SCH (19:54)
[2023-10-22] MEDS: carvediloL 3.125 MG TAB PO SCH (19:54)
[2023-10-22] MEDS: TAMSULOSIN HCL 0.4 MG CAP PO SCH (19:54)
[2023-10-22] MEDS: DOCUSATE SODIUM 100 MG CAP PO SCH (19:55)
[2023-10-22] MEDS: ASPIRIN 81 MG ECTAB PO SCH (19:55)
[2023-10-22] MEDS: ATORVASTATIN 20 MG TAB PO SCH (19:56)
[2023-10-22] MEDS: ESCITALOPRAM OXALATE 20 MG TAB PO SCH (19:56)
[2023-10-22] MEDS: oxyCODONE HCL IR 5 MG TAB (IMMEDIATE RELEASE) PO PRN (20:00)
[2023-10-22] MEDS ORDERED: GLUCAGON FOR INJ 1 MG VIAL IM PRN (20:15)
[2023-10-22] MEDS ORDERED: SENNA 8.6 MG TAB PO SCH (21:00)
[2023-10-22] MEDS: INSULIN ASPART PER UNIT CHARGE SC SCH (22:16)
[2023-10-23 07:16] LABS: BUN Creatinine Ratio 15.7 (10-20); Calcium 8.6 mg/dl (8.6-10.3); Creatinine Clr Calc Pharmacy 55.6 ml/min; Est GFR (Non-African American) 57.8 ml/min; Potassium 4.2 mmol/L (3.5-5.1)
[2023-10-23 07:32] LABS: Hematocrit (blood only) 38.7 % (42.0-52.0); Hemoglobin 12.2 g/dl (14.0-18.0); Mean Corpuscular Hemoglobin 26.6 pg (25.0-34.0); Mean Corpuscular Hgb Conc 31.5 g/dL (32.0-36.0); Mean Corpuscular Volume 84.3 fL (80.0-100.0); Mean Platelet Volume 10.9 fL (9.4-12.4); Platelet Count 214 K/uL (130-400); RDW Standard Deviation 46.3 fL (36.4-46.3); Red Blood Count 4.59 M/uL (4.70-6.10); White Blood Count 15.09 K/ul (4.8-10.8)
--- NOTE | 2023-10-23 07:37 | Surgery Progress Note ---
Date of Service October 23, 2023 Assessment & Plan (1) Status post left knee replacement: Plan: 77-year-old gentleman postop day 1 from a left knee replacement doing pretty well. Pain is controlled. He is neurologically intact. He is hoping to go home today. He is can have some assistance at home. Plan: 1. DVT prophylaxis including thigh-high teds, SCDs, Plavix and aspirin. 2. PT/OT. Weight-bear as tolerated. Left total knee protocol. 3. Pain control doing okay with current pain regimen. 4. Disposition plan is to discharge him to home with home health. He is can have some assistance at home from some friends. Admission and Anticipated Discharge Date Admission Date: October 22, 2023 Subjective 77-year-old gentleman postop day 1 from a left knee replacement. He is doing pretty well. I had to wake him this morning. He had a reasonably good night. Pain is very well-controlled. Denies any chest pain or shortness of breath. He is hoping to go home today. Physical Exam Physical Exam: Physical examination was a pleasant elderly male. I did wake him this morning. Examination of left leg reveals dressing be clean dry and intact he can dorsiflex and plantarflex his foot appropriately. He is neurologically intact. Respiratory: normal respiratory effort, lungs clear to auscultation Cardiovascular: RRR, no murmur, no edema Gastrointestinal (Abdomen): normal bowel sounds, soft, nontender, no hepatosplenomegaly Results & Data Vital Signs (Past 12 Hours) Vital Signs Temp Pulse Resp BP Pulse Ox O2 Del Method 10/23/23 07:08 36.9 C 60 16 113/57 L 96 Room Air 10/23/23 03:57 37.1 C 61 17 125/73 96 Room Air 10/23/23 00:16 36.6 C 73 17 139/74 96 Room Air Laboratory Results Hemoglobin is 12.2. Hematocrit 38.7. Electrolytes are stable. PG Care Time/CCT Total # of Minutes Spent Total Time Spent with Patient: Total time spent is greater than 50% in coordination of care (as documented) at patient's floor/unit and/or counseling patient: Coding Level of Care Code 48925 Post Operative Follow-Up Diagnoses Status post left knee replacement Z96.652
[2023-10-23] MEDS: PANTOprazole 40 MG TAB PO SCH (08:02)
[2023-10-23] MEDS: MULTIVITAMIN TAB PO SCH (08:03)
[2023-10-23] MEDS: LOSARTAN POTASSIUM 25 MG TAB PO SCH (08:03)
--- OUTSIDE RECORDS SUMMARY | 2023-10-24 13:23 | External Medical Summary | Summary of Care ---
Author Name Unknown Organization [facility] Address [address] [place] [address] Phone [phone] Care Team Providers Care Technical Service Rep Name Role Phone Tavares Quiroz MD Primary Care Provider [phone] Reason for Visit * Reason Onset Date Comments MyCode Nonconsent - Not interested at this time 10/15/2023 Encounter Details Date Type Department Care Team (Late st Contact Info) Description 10/15/2023 Orders Only Outcomes Research Department [address] [place] [address] Catalina Hall CHRA MyCode Nonconsent Documentation Allergies Active Allergy Reactions Criticality Noted Date Comments Navneet Inhibitors Cough 07/16/2023 Shellfish-Derived Products Hives 4 Sulfa Antibiotics Hives 07/16/2023 documented as of this encounter (statuses as of 10/15/2023) Medications Medication Sig Dispensed Refills Start Date End Date Status Ciclopirox 8 % External Solution Apply over nail and surrounding skin. Apply daily over previous coat. After seven (7) days, may remove with alcohol and continue cycle. 6.6 mL 2 07/16/2023 Active documented as of this encounter (statuses as of 10/15/2023) Active Problems No known active problems documented as of this encounter (statuses as of 10/15/2023) Social History Tobacco Use Types Packs/Day Years Used Date Smoking Tobacco: Never Assessed Sex and Gender Information Value Date Recorded Sex Assigned at Not on file Gender Identity Not on file Sexual Orientation Not on file Job Start Date Occupation Industry Not on file Not on file Not on file documented as of this encounter Progress Notes * Catalina Hall CHRA - 10/15/2023 10:37 AM EDT MyCode Nonconsent Documentation Danilo Morales was approached in the clinic regarding participation in the MyCode Project and did notconsent. documented in this encounter Plan of Treatment Upcoming Encounters Date Type Department Care Team ([facility] st Contact Info) Description 12/17/2023 10:45 AM EDT Office Visit Podiatry [facility], Desmond Cabral [address] [place] [address] [address] [place] [phone] Sathya Martínez, VRIGINIA [address] [place], [place] [id number] Health Maintenance Due Date Last Done Comments Depression Screening 1957 Hepatitis C Screening 1963 DTaP,Tdap,and Td Vaccines (1 - Tdap) 1965 Zoster Vaccines (2 of 3) 08/16/2007 06/21/2007 Pneumococcal Vaccine: 65+ Years (2 of 2 - PPSV23 or PCV20) 06/17/2018 04/22/2018, 05/21/2015 COVID-19 Vaccine (1 - 2022-2 4 season) 2023 Influenza Vaccine (FLU shot) (Season Ended) 2024 04/22/2018, 05/26/2016, 05/21/2015 GARDASIL-HPV IMMUNIZATION SERIES Aged Out No longer eligible b ased on patient's age to complete this topic Hepatitis B Aged Out No longer eligi ble based on patient's age to complete this topic MENINGOCOCCAL (MENACTRA/MENVEO) Aged Out No longer eligible b ased on patient's age to complete this topic documented as of this encounter Medical Devices Not on filedocumented as of this encounter Care Teams Technical Service Rep Relationship Specialty Start Date End Date Tavares Quiroz MD [address] [place] [address] PCP - General Internal Medicine 01/30/15 documented as of this encounter
--- OUTSIDE RECORDS SUMMARY | 2023-10-24 13:23 | External Medical Summary | Summary of Care ---
Author Name Unknown Organization [facility] Address [address] [place] [address] Phone [phone] Care Team Providers Care [facility]ing [facility] Operator Name Role Phone Tavares Quiroz MD Primary Care Provider [phone] Reason for Visit * Reason Comments Follow Up Foot care Encounter Details Date Type Department Care Team ([facility] st Contact Info) Description 10/15/2023 10:45 AM EDT Office Visit Podiatry [address] [place] [address] Sathya Martínez, [facility] [address] [place] [address] Type II diabetes mellitus with peripheral circulatory disorder (HCC)*; Onychomycosis; Diabetic polyneuropathy associated with type 2 diabetes mellitus (HCC) Allergies Active Allergy Reactions Criticality Noted Date Comments Navneet Inhibitors Cough 07/16/2023 Shellfish-Derived Products Hives Sulfa Antibiotics Hives 07/16/2023 documented as of [...] as of this encounter Progress Notes * Sathya Martínez, ANDRESM - 10/15/2023 10:45 AM EDT Patient presents with painful thickened fungal nails causing pain when wearing shoes and walking. Patient relates that nails have been this way for years but are getting progressively worse. Patient presents for evaluation and treatment. No past medical history on file. No past surgical history on file. No family history on file. Social History Socioeconomic History Marital status: Single Spouse name: Not on file Number of children: Not on file Years of education: Not on file Highest education level: Not on file Occupational History Not on file Tobacco Use Smoking status: Not on file Smokeless tobacco: Not on file Substance and Sexual Activity Alcohol use: Not on file Drug use: Not on file Sexual activity: Not on file Other Topics Concern Not on file Social History Narrative Not on file Social Determinants of Health Financial Resource Strain: Not on file Food Insecurity: Not on file Transportation Needs: Not on file Physical Activity: Not on file Stress: Not on file Social Connections: Not on file Intimate Partner Violence: Not on file Housing Stability: Not on file Current Outpatient Medications Medication Sig Dispense Refill Ciclopirox 8 % External Solution Apply over nail and surrounding skin. Apply daily over previous coat. After seven (7) days, may remove with alcohol and continue cycle. 6.6 mL 2 No current facility-administered medications for this visit. ROS EXAM: CONSTITUTIONAL: No change in weight, No weakness, No fatigue, and No fevers, sweats, or chills EXTREMITIES: No pain, redness or swelling on the joints SKIN/INTEGUMENTARY: No edema, No rash, and No itching NEUROLOGIC: Normal balance, No headaches, No seizures, and No weakness Objective: Vascular examination: DP 2/4 bilateral PT 0/4 bilateral SPVFT 3sec no digital hair, thin atrophic skin Dermatological examination: nails 1-5 right and nails 1-5 left appear thickened mycotic and painful Orthopedic examination: unremarkable Neurological examination: Epicritic sensation diminished Assessment: The primary encounter diagnosis was Type II diabetes mellitus with peripheral circulatory disorder (HCC). Diagnoses of Onychomycosis and Diabetic polyneuropathy associated with type 2 diabetes mellitus (HCC) were also pertinent to this visit. Plan: Discussed etiology and treatment options with the patient. Discussed debridement and topical treatment vs oral antifungal treatment Debridement of multiple mycotic nails x 10 was performed to reduce both length and bulk of nails documented in this encounter Nursing Notes * Maria E Samuel MED ASSIST - 10/15/2023 10:36 AM EDT Diabetic routine foot care documented in this encounter Plan of Treatment Upcoming Encounters Date Type Department Care Team ([facility] st Contact Info) Description 12/17/2023 10:45 AM EDT Office Visit Podiatry [address] [address] Sathya Martínez DPM [facility] [place] [address] Scheduled Orders Name Type Priority Associated Diagnoses Orde r Schedule DEBRIDEMENT OF NAILS 6 OR MORE Procedures Routine Type II diabetes mellitus with peripheral circulatory disorder (HCC) Onychomycosis Ordered: 10/15/2023 Health Maintenance Due Date Last Done Comments Depression Screening 1957 Hepatitis C Screening 1963 DTaP,Tdap,and Td Vaccines (1 - Tdap) 1965 Zoster Vaccines (2 of 3) 08/16/2007 06/21/2007 Pneumococcal Vaccine: 65+ Years (2 of 2 - PPSV23 or PCV20) 06/17/2018 04/22/2018, 05/21/2015 COVID-19 Vaccine ( - 2022-2 4 season) 2023 Influenza Vaccine [...] Not on filedocumented as of this encounter Visit Diagnoses Diagnosis Type II diabetes mellitus with peripheral circulatory disorder (HCC)- Primary Type II or unspecified type diabetes mellitus with peripheral circulatory disorders, not stated as uncontrolled Onychomycosis Dermatophytosis of nail Diabetic polyneuropathy associated with type 2 diabetes mellitus (HCC) documented in this encounter Care Teams Recycling Center Operator Relationship Specialty Start Date End Date Tavares Quiroz MD [address] [place] [address] [place] [id number] PCP - General Internal Medicine 01/30/15 documented as of this encounter
== END 2023-10-23 10:44 | disposition home health service (06) ==
LOC: ASU 10:46 → 3E 10:46